=== PATIENT | male | born 1995 | race Caucasian/White ===

== ENCOUNTER 2020-05-04 16:50 | Inpatient (IN) | payer OTHER ==
[~2020-05-04] VITALS: Ht 177.8 cm; Wt 92.9 kg
[2020-05-04] MEDS ORDERED: LASI40TA9 PO (17:03)
[2020-05-04] MEDS ORDERED: LIPI20TA PO (17:03)
[2020-05-04] MEDS ORDERED: SM M250T PO (17:03)
[2020-05-04 18:22] LABS: BASO # 0.1 10^3/uL (0.0-0.2); EOS # 0.4 10^3/uL (0.0-0.5); EOS % 4.9 % (0.0-3.0); HEMATOCRIT 49.5 % (42.0-52.0); HEMOGLOBIN 17.2 g/dl (13.5-17.5); LYMPH # 2.3 10^3/uL (1.5-5.0); LYMPH % 25.8 % (24.0-44.0); MEAN CORPUSCULAR HEMOGLOBIN 31.7 pg (27.0-33.0); MEAN CORPUSCULAR HGB CONC 34.7 g/dl (32.0-36.5); MEAN CORPUSCULAR VOLUME 91.3 fl (80.0-96.0); MONO # 0.8 10^3/uL (0.0-0.8); MONO % 8.7 % (2.0-8.0); NEUTROPHILS # 5.4 10^3/uL (1.5-8.5); NEUTROPHILS % 59.4 % (36.0-66.0); PLATELET COUNT, AUTOMATED 250 10^3/uL (150-450); RED BLOOD COUNT 5.42 10^6/uL (4.30-6.10)
[2020-05-04] MEDS ORDERED: MAGN1CAP PO (18:29)
--- NOTE | 2020-05-04 18:46 | REPVR ---
PROCEDURE INFORMATION: Exam: US Duplex Lower Extremity Veins, Bilateral Exam date and time: 05/04/2020 6:07 PM Age: 24 years old Clinical indication: Edema, localized; Lower extremity, bilateral; Additional info: Edema R/O dvt TECHNIQUE: Imaging protocol: Real-time duplex ultrasound of the extremities with 2-D macias scale, color Doppler flow and spectral waveform analysis with image documentation. Complete exam focused on the bilateral lower extremity veins. COMPARISON: No relevant prior studies available. FINDINGS: Right deep veins: Unremarkable. The common femoral, femoral and popliteal veins are patent without thrombus. Normal Doppler waveforms. Normal compressibility and/or augmentation response. Right superficial veins: No definite abnormality visible. Left deep veins: Unremarkable. The common femoral, femoral and popliteal veins are patent without thrombus. Normal Doppler waveforms. Normal compressibility and/or augmentation response. Left superficial veins: No definite abnormality visible. Soft tissues: Unremarkable. IMPRESSION: No evidence of deep vein thrombosis in the lower extremity vessels bilaterally. Electronically signed by: James Matthew On 05/04/2020 18:45:39 PM
[2020-05-04 18:50] LABS: ALBUMIN 0.8 GM/DL (3.2-5.2); ALT/SGPT 23 U/L (12-78); BILIRUBIN,DIRECT < 0.1 MG/DL (0.0-0.2); BILIRUBIN,TOTAL 0.3 MG/DL (0.2-1.0); BLOOD UREA NITROGEN 20 MG/DL (7-18); CALCIUM LEVEL 7.7 MG/DL (8.5-10.1); CARBON DIOXIDE LEVEL 34 MEQ/L (21-32); CHLORIDE LEVEL 100 MEQ/L (98-107); GLOMERULAR FILTRATION RATE > 60.0 (>60); GLUCOSE, FASTING 74 MG/DL (70-100); LIPASE 84 U/L (73-393); POTASSIUM SERUM 4.1 MEQ/L (3.5-5.1); SODIUM LEVEL 136 MEQ/L (136-145); TOTAL PROTEIN 3.7 GM/DL (6.4-8.2)
[2020-05-04 19:05] LABS: RSV AMPLIFICATION NEGATIVE (NEGATIVE)
[2020-05-04] MEDS ORDERED: ISOVUE-370 76% 100ML VIAL As Ordered ONE (19:13)
--- OUTSIDE RECORDS SUMMARY | 2020-05-04 19:51 | CCD ---
Author Author [facility] Organization [facility] Address Unknown Phone Unavailable Care Team Providers Care Psychologist Military Personnel Name Role Phone TURRIN, CROW Unavailable Unavailable TURRIN, CROW Unavailable Unavailable TURRIN, CROW Unavailable Unavailable TURRIN, CROW Unavailable Unavailable UNKNOWN, [facility] Unavailable Unavailable Re-disclosure Warning The records that you are about to access may contain information from federally-assisted alcohol or drug abuse programs. If such information is present, then the following federally mandated warning applies: This information has been disclosed to you from records protected by federal confidentiality rules (42 CFR part 2). The federal rules prohibit you from making any further disclosure of this information unless further disclosure is expressly permitted by the written consent of the person to whom it pertains or as otherwise permitted by 42 CFR part 2. A general authorization for the release of medical or other information is NOT sufficient for this purpose. The Federal rules restrict any use of the information to criminally investigate or prosecute any alcohol or drug abuse patient.The records that you are about to access may contain highly sensitive health information, the redisclosure of which is protected by Article 27-F of the [facility] Public Health law. If you continue you may have access to information: Regarding HIV / AIDS; Provided by facilities licensed or operated by the [facility] Office of Mental Health; or Provided by the [facility] Office for People With Developmental Disabilities. If such information is present, then the following [facility] mandated warning applies: This information has been disclosed to you from confidential records which are protected by state law. State law prohibits you from making any further disclosure of this information without the specific written consent of the person to whom it pertains, or as otherwise permitted by law. Any unauthorized further disclosure in violation of state law may result in a fine or alf sentence or both. A general authorization for the release of medical or other information is NOT sufficient authorization for further disc losure. Encounters Encounter Providers Location Date Indications Data Source(s ) Emergency Attender: CROW ANDERSONConsultant: PHIL OSBORNE 05/02/2020 02:14:00 PM EST - 05/02/2020 06:01:[address] [facility] Patient discharged. Insurance Providers Payer name Policy type / Coverage type Policy ID Covered republican ID Covered republican's relationship to isbell Policy Isbell Plan Information [employer] [id number] SP [id number] ACTIVE DUTY [id number] SP [id number] [employer] HUMA[employer] - O/P [id number] 18 [id number] Results ID Date Data Source [id number] 05/03/2020 09:41:00 [place] [address] PHONE: [phone] FAX: [phone] Name .................. : RHYS CHILDRESS Walter Acct Number.................. : [id number] ROOM. ................. : TR-02 Number ................... : [id number] Stay type ............. : E/R Discharge Date......... ... : Admit Date ......... : 04/23 Admit Phys .................... : JUSTIN WILLETT Date of ....... : 1995 Family Phys ................... : UNKNOWN CO Phone .................. : [phone] Age ................................ : 24 Film# .................. .:[id number] Sex ................................. : M Unsigned transcriptions are preliminary reports and do not represent a medical or legal document CHEST 2 VIEWS 55644 COMPLETE:05/02/20 15:02 FLO 4013 Reason(s): Chest Pain CHEST X-RAY: 2-VIEWS COMPARISON: None. FINDINGS: The cardiac and mediastinal silhouettes appear normal and the lungs are clear. The bones and soft tissues are normal. The upper abdomen is unremarkable. IMPRESSION: No acute disease identifiable. Electronically Reviewed and Signed By Kendall Lopes MD , 05/03/20 09:41, KGBrian Transcribe Initials: Kavya HERNÁNDEZ scribe Date: 05/02/20 16:07, Dictation Date: Copy for: EMERGENCY DEPT via modem Copy for: 710 MED REC DISCHARGED Page 1 of 1 Name Value Range Interpretation Code Description Data Citlaly rce(s) Supporting Document(s) ID Date Data Source [id number] 05/03/2020 09:33:00 [place] [address] PHONE: [phone] FAX: [phone] Name .................. : RHYS Watson Acct Number.................. : [id number] ROOM. ................. : TR-02 MR Number ................... : [id number] Stay type ............. : E/R Discharge Date......... ... : 05/02/20 Admit Date ....... .. : 05/02/20 Admit Phys .................... : JUSTIN WILLETT Date of ....... : 1995 Family Phys ................... : UNKNOWN CO Phone .................. : [phone] Age ................................ : 24 Film# .................. .:[id number] Sex ................................. : M Unsigned transcriptions are preliminary reports and do not represent a medical or legal document CT CTA CHEST NON-CORONARY [facility] 08518 COMPLETE:05/02/20 18:25 [facility] 4021 Reason(s): CP, SOB, High d-dimer CTA OF THE CHEST WITH CONTRAST: CLINICAL HISTORY: Chest pain, shortness of breath, high D-dimer. TECHNIQUE: CTA examination of the chest was acquired. Axial, coronal and sagittal images are evaluated. FINDINGS: No filling defects identified involving the pulmonary arteries. No aneurysmal dilatation to the aorta. No aortic dissection. No cardiac enlargement or pericardial effusion. No reactive mediastinal or hilar adenopathy. No infiltrates or pleural effusion. No suspicious pulmonary nodules. The osseous structures are unremarkable. Axial images through the upper abdomen reveals mi ld to moderate ascites. IMPRESSION: No pulmonary embolus. No adenopathy, infiltrate or effusion. Ascites identified in the upper abdomen. While performing the above CT examination, radiation dose reduction was accomplished utilizing automated exposure control, adjusting of the mA and kV based on the patient's body size and/or the use of imperative reconstructive techniques. CT dose: 437.9 mGycm Page 1 of 2 [facility] [address] [place] [address] PHONE: [phone] FAX: [phone] Name .................. : RHYS Watson Acct Number.................. : [id number] ROOM. ................. : TR-02 MR Number ................... : [id number] Stay type ............. : E/R Discharge Date......... ... : 05/02/20 Admit Date ......... : 05/02/20 Admit Phys .................... : JUSTIN WILLETT Date of ..... .. : 1995 Family Phys ................... : UNKNOWN CO Phone .................. : [phone] Age ................................ : 24 Film# .................. .:[id number] Sex ................................. : M Unsigned transcriptions are preliminary reports and do not represent a medical or legal document CT CTA CHEST NON-CORONARY [facility] 36570 COMPLETE:05/02/20 18:25 [facility] 4021 Reason(s): CP, SOB, High d-dimer Contrast agent in mL: 75 Isovue 370 Method of administration: Intravenous Electronically Reviewed and Signed By Manish Petit MD , 05/03/20 09:33, SERGIO Transcribe Initials: EDGAR , Transcribe Date: 05/02/20 22:38, Dictation Date: Copy for: EMERGENCY DEPT via [facility] Copy for: 710 MED REC DISCHARGED Page 2 of 2 Name Value Range Interpretation Code Description Data Citlaly rce(s) Supporting Document(s) ID Date Data Source [id number] 05/03/2020 09:19:00 AM EST [facility] [address] [place] [address] PHONE: [phone] FAX: [phone] Name .................. : RHYS CHILDRESS Walter Acct Number.................. : [id number] ROOM. ................. : TR-02 MR Number ................... : [id number] Stay type ............. : E/R Discharge Date......... ... : 05/02/20 Admit Date ....... .. : 05/02/20 Admit Phys .................... : JUSTIN WILLETT Date of ....... : 1995 Family Phys ................... : UNKNOWN CO Phone .................. : [phone] Age ................................ : 24 Film# .................. .:[id number] Sex ................................. : M Unsigned transcriptions are preliminary reports and do not represent a medical or legal document CT ABD & PEL[place] W/[place] [address] COMPLETE:05/02/20 17:15 FLO 4030 Reason(s): Proteinuria, hy poalbuminemia, hematuria CT OF THE ABDOMEN AND PELVIS WITHOUT CONTRAST: CLINICAL HISTORY: Proteinuria, hypoalbuminemia, hematuria. FINDINGS: There is gross ascites. The spleen is enlarged, measuring 13.7 cm. The liver is unremarkable. The pancreas is not well seen because of ascites. The kidneys demonstrate no evidence for masses or obstruction. No lymphadenopathy is seen. There is a right pars defect at L5. IMPRESSION: Gross ascites. Splenomegaly. Right pars defect at L5. While performing the above CT examination, radiation dose reduction was accomplished utilizing automated exposure control, adjusting of the mA and kV based on the patient's body size and/or the use of imperative reconstructive techniques. CT dose: 852.7 mGycm Electronically Reviewed and Signed By Goran Cote MD , 05/03/20 09:19, MRA Transcribe Initials: EDGAR , Transcribe Date: 05/02/20 21:49, Dictation Date: Page 1 of 2 [place] [address] PHONE: [phone] FAX: [phone] Name .................. : RHYS FIOR R Acct Number.................. : [id number] ROOM. ................. : TR-02 MR Number ................... : [id number] Stay type ............. : E/R Discharge Date......... ... : 05/02/20 Admit Date ......... : 05/02/20 Admit Phys .................... : JUSTIN WILLETT Date of ....... : 1995 Family Phys ................... : UNKNOWN CO Phone .................. : [phone] Age ................................ : 24 Film# .................. .:[id number] Sex ................................. : M Unsigned transcriptions are preliminary reports and do not represent a medical or legal document CT ABD & PEL[place] [address] COMPLETE:05/02/20 17:15 FLO 4030 Reason(s): Proteinuria, hypoalbuminemia, hematuria Copy for: EMERGENCY DEPT via mode Copy for: 710 MED REC DISCHARGED Page 2 of 2 Name Value Range Interpretation Code Description Data Citlaly rce(s) Supporting Document(s) ID Date Data Source [id number] 05/03/2020 02:25:00 [place] [address] RESPIRATORY CARE REPORT ==== ---------NAME------- NUMBER SEX AGE ADMIT DISC. XRAY# F/C KELLI Watson [id number] 24 05/02/20 05/02/20 [id number] SB4 E/R DATE OF : 1995 M/R# [id number] PH#: [phone] TR-02 LOCATION: [place] [address] COMPLE TE:05/02/20 15:52 [place] [address] PHYSICIAN: JUSTIN WILLETT Name Value Range Interpretation Code Description Data Citlaly rce(s) Supporting Document(s) ID Date Data Source [id number] 05/02/2020 02:14:[address] [facility] 1 OrderSheet [facility] [address] [place] [address] Phone #: ext- [phone] 05/02/2020 13:52 Patient: FIOR JOINER Sex: M : 1995 Age: 24yWEIGHT:78.4 kg (S)ALLERGIES: No Known Drug AllergyCHIEF COMPLAINT: chest pain, discomfortLAB ORDERSOrder Description Priority Entered Acknowledged InitialedCBC w Diff STAT 14:20 05/02/2020 14:33 Justin Banks Riccardo Jessica R.N. M.D.;CMP STAT 14:20 05/02/2020 14:33 Justin Banks Riccardo Jessica R.N. M.D.;Lipase STAT 14:20 05/02/2020 14:33 Justin Banks Riccardo Jessica R.N. M.D.;PT/PTT STAT 14:20 05/02/2020 14:33 Justin Banks Riccardo Jessica R.N. M.D.;Troponin-T STAT 14:20 04/23 14:33 Justin Banks Riccardo Jessica R.N. M.D.;BNP STAT 14:20 05/02/2020 14:33 Justin Banks Riccardo Jessica R.N. M.D.;D-Dimer STAT 14:20 05/02/2020 14:33 Justin Banks Riccardo Jessica R.N. M.D.;Urinalysis (Clean STAT 15:55 05/02/2020 16:06 Wade Banks Riccardo Jessica R.N. M.D.;TSH STAT 17:36 05/02/2020 17:37 Justin Armendariz Riccardo Lisa RN M.D.;HbA1C STAT 17:36 05/02/2020 17:37 KalaJustin santiago Riccardo Lisa RN M.D.;DIAGNOSTIC STUDY ORDERSOrder Description Priority Entered Acknowledged Initialed 2 OrderSheet [facility] [address] [place] [address] Phone #: ext- [phone] 05/02/2020 13:52 Patient: FIOR JOINER Sex: M : 1995 Age: 24yChest 2 View STAT 14:20 05/02/2020 14:24 Jocelyn,(Oxygen?(No)) Crow Anderson.N. M.D.; Reason for Study: Chest Pain, Shortness of BreathCT CTA CHEST STAT 15:49 05/02/2020 16:07 Jocelyn,(NONCOR) W CON Crow Anderson R.N.INC PP M.D.;(Oxygen?(No))(IV?(Yes)) Reason for Study: CP, SOB, High d-dimerCT ABD PEL W/O STAT 16:50 05/02/2020 17:04 Jocelyn,Oral W/O IV Crow Andersonssica R.N.Contrast M.D.;(Oxygen?(No))(IV?(Yes)) Reason for Study: Proteinuria, hypoalbuminemia, hematuriaMEDICATION/IV/DRIP/FLUID ORDERSOrder Description Priority Entered Acknowledged InitialedAtivan PO 1 mg 14:20 05/02/2020 14:35 Jocelyn, Crow Andersonica R.N. M.D.;GENERAL ORDERSOrder Description Priority Entered Acknowledged InitialedBlood Pressure 14:20 05/02/2020 14:24 Jocelyn,Monitor Crow Anderson R.N. M.D.;Founder And President 14:20 05/02/2020 14:24 Jocelyn,(continuous) Crow Anderson R.N. M.D.;EKG 14:20 05/02/2020 14:58 Justin Banks Riccardo Jessica R.N. M.D.;NPO 14:20 05/02/2020 14:24 Justin Banks Riccardo Jessica R.N. M.D.;Obtain Old EKG 14:20 05/02/2020 14:33 Justin Banks Riccardo Jessica R.N. M.D.;Obtain Old Records 14:20 05/02/2020 14:33 Justin Banks Riccardo Jessica R.N. M.D.; 3 OrderSheet [facility] [address] [place] [address] Phone #: ext- [phone] 05/02/2020 13:52 Patient: FIOR JOINER Sex: M : 1995 Age: 24yOxygen titrate to 14:20 05/02/2020 14:24 Jocelyn,92% Crow Anderson R.N., M.D.;Pulse oximeter 14:20 05/02/2020 14:24 Jocelyn,(Continuous) Crow Anderson R.N., M.D.;Vitals 14:20 05/02/2020 14:24 Justin Banks Riccardo Jessica R.N. M.D.;Saline Lock 15:49 05/02/2020 15:57 Justin Banks Riccardo Jessica R.N. M.D.;[Electronically signed by Yolanda Banks R.N. (18:01 05/02/2020)][Electronically signed by Crow Anderson M.D. (21:04 05/02/2020)][Electronically locked by Yolanda Banks R.N. (18:01 05/02/2020)] Name Value Range Interpretation Code Description Data Citlaly rce(s) Supporting Document(s) ID Date Data Source [id number] 05/02/2020 02:14:00 PM [place] [address] Medication Reconciliation Report [facility] [address] [place] [address] Phone #: ext [phone] 05/02/2020 13:52 Patient: IFOR JOINER Sex: M : 1995 Age: 24yWeight: 78.4 kgHeight/Length: 71 in.BMI: 24.1ALLERGIES: No Known Drug AllergyThe patient's Home Medications are listed below:NONE.The source(s) of the original Home Medication information:Not obtained.The following Medications were given to the patient in the Emergency Department:Ativan [PO] PO 2 mg, administered: 14:35 05/02/2020The following Medications were prescribed to the patient:None. Name Value Range Interpretation Code Description Data [facility](s) Supporting Document(s) ID Date Data Source [id number] 05/02/2020 02:14:00 PM [place] [address] Medication Administration Record [facility] [address] [place] [address] Phone #: ext [phone] 05/02/2020 13:52 Patient: FIOR JOINER Sex: M : 1995 Age: 24yWeight: 78.4 kgHeight/Length: 71 inBMI: 24.1ALLERGIES: No Known Drug Allergy Date/Time Medication Administered Medication OrderedGiven ATIVAN [PO] (LORAZEPAM) Ativan PO 1 mg14:35 05/02/2020 Dose: 2 mg Tablets Yolanda Solares R.N. Name Value Range Interpretation Code Description Data Citlaly rce(s) Supporting Document(s) ID Date Data Source [id number] 05/02/2020 02:14:00 PM EST [facility] 1 General Instructions [facility] [address] [place] [address] Phone #: ext- [phone] 05/02/2020 13:52 Patient: FIOR JOINER Sex: M : 1995 Age: 24yHypoalbuminemiaProteinuriaAscitesSplenomegalyRule out Nephrotic Syndrome.INSTRUCTIONSNo strenuous activity until released. Return to work when released by doctor.Avoid stimulants (such as cigarettes, coffee, cold medicines, sinus medicines, street drugs). Follow a lowsalt diet and low cholesterol diet. Do not smoke. No alcohol.(YOU MUST GO TO CLINIC ON POST TOMORROW FOR NEPHROLOGY REFERRAL DUSTIN CLAUDIORE OUT WHY YOU HAVE LOW PROTEINS, LOW ALBUMIN, PROTEIN IN YOUR URINE, FLUID INYOUR ABDOMEN, LARGE SPLEEN;YOU MAYBE DEVELOPING EARLY NEPHROTIC SYNDROME WHICH IS A DISEASE OF THEKIDNEYS).Warnings: Further evaluation is necessary in order to recheck abnormal lab, conduct further tests andassess the possibility of serious illness (Nephrology). It is very important to follow up with a healthcareprovider.GENERAL WARNINGS: Return or contact your physician immediately if your condition worsens orchanges unexpectedly, if not improving as expected, or if other problems arise. SPECIFICALLY, return ifyou develop chest, neck, jaw, shoulder, arm, or back pain, difficulty breathing, a fluttering sensation in yourchest, lightheadedness, fainting, excessive fatigue, or sudden sweating.Your Current Medications: .No home medication.Follow-up:Return to the emergency department as needed. Follow up with your healthcare provider tomorrow evenif well. Call for an appointment. Reason for referral: evaluation, treatment and Nephrology Consult.Summary of care provided to patient via paper. Follow up with a political researcher in two days even if well. Callfor an appointment. Reason for referral: evaluation and treatment. Summary of care provided to patient viapaper.Understanding of the discharge instructions verbalized by patient. Expected course of illness, dischargeinstructions, activity level, diet, follow- up appointment and risks and benefits of treatment reviewed withpatient and unde rstanding verbalized. Agrees to plan of care. 2 General Instructions [facility] [address] [place] [address] Phone #: ext- [phone] 05/02/2020 13:52 Patient: FIOR JOINER Sex: M : 1995 Age: 24yNo strenuous activity until released. Return to work when released by doctor.(Electronically signed by Crow Anderson M.D. 05/02/2020 21:04) Name Value Range Interpretation Code Description Data Citlaly rce(s) Supporting Document(s) ID Date Data Source [id number] 05/02/2020 02:14:00 PM EST [facility] 1 Clinical Report - Nurses [facility] [address] [place] [address] Phone #: ext- [phone] 05/02/2020 13:52 Patient: FIOR JOINER Sex: M : 1995 Age: 24yTRIAGEArrived by private vehicle. Historian: patient.Acuity: LEVEL 3.Chief Complaint: CHEST DISCOMFORT and SHORTNESS OF BREATH (leg swelling).Alert. No acute distress.( PT says Thursday he began having swelling in his legs. He went to the [facility] clinic yesterday and had xrays, but he is unsure of the results. They also did an EKG for some pressure in his chest that he believeswas normal. Today, he began having lower sternal chest pain while walking up stairs and SOB. He tried torest after this and the symptoms improved slightly. He also says he takes preworkout, caffeine, and energydrinks regularly, but he has not had any in 3 days.).Treatment FOOD AND BEVERAGE MANAGER:None.SEPSIS SCREEN: SIRS SCREEN NEGATIVE. SEPSIS SCREEN NEGATIVE. No suspected or confirmedsigns of infection present.SHAHRIAR COMA SCORE: 15- eyes open- spontaneous (4); best verbal response- oriented (5); bestmotor response- obeys commands (6). --14:04 05/02/20 Katelynn Riddle R.N.13:55 05/02/20. BP: 132/85. MAP: 100. HR: 80. RR: 18. O2 saturation: 97%. Temp: 98.2 F. Pain levelnow: 07/30. --14:04 05/02/20 Katelynn Riddle R.N.Weight: 78.4 kg stated. Height/Length: 71 inches Per Patient. BMI: 24.1. --14:03 05/02/20 Katelynn Riddle R.N.MedicationsNone. --14:00 05/02/20 Katelynn Riddle R.N.AllergiesNo Known Drug Allergy. --14:00 05/02/20 Katelynn Riddle R.N.PROBLEMS:no known problems.ADDITIONAL SURGERIES:Tubes in ears. --14:01 05/02/20 Katelynn Riddle R.N. 2 Clinical Report - Nurses [facility] [address] [place] [address] Phone #: ext- [phone] 05/02/2020 13:52 Patient: FIOR JOINER [facility]#: [id number] Sex: M : 1995 Age: 24y History PAST MEDICAL HX: Immunizations: up-to-date. SOCIAL HX: Never smoker. No alcohol use or drug use. The patient was offered HIV testing but declined and hepatitis C testing but declined. The patient has not traveled outside the [place] Infectious disease exposure: The patient was not exposed to C-diff, MRSA, VRE, CRE or Coronavirus. SELF HARM ASSESSMENT: Self harm assessment was performed. The patient answered "no" to the question(s) "Have you recently felt down, depressed, or hopeless?", "Do you have thoughts of harming or killing yourself?", "Do you have a plan for harming or killing yourself?", "Have you recently had thoughts about harming or killing others?", "Do you have any dangerous items in your possession?", "Have you noticed less interest or pleasure in doing things?", "Are you here because you tried to hurt yourself?" and "Have you ever tried to hurt yourself before today?". ABUSE ASSESSMENT: No report of abuse. NUTRITIONAL RISK ASSESSMENT: The nutritional risk assessment revealed no deficiencies. FUNCTIONAL ASSESSMENT: Functional assessment: no impairments noted. LEARNING NEEDS ASSESSMENT: The learning needs assessment revealed no barriers. FALL RISK ASSESSMENT: Fall risk assessment completed. No risk factors identified. SKIN INTEGRITY ASSESSMENT: Skin integrity risk assessment completed. No skin integrity risk identified. --14:04 05/02/20 Katelynn Riddle R.N. Interventions Identification band on patient. To treatment room. --14:04 05/02/20 Katelynn Riddle R.N.PHYSICAL ASSESSMENTAmbulatory to room. Patient gowned.GENERAL / NEURO / PSYCH: Alert. Oriented X 4. Appears in no acute distress.HEENT: Mucous membranes are pink.RESPIRATORY: Respirations not labored. Chest nontender. Breath sounds within normal limits.CVS: Normal sinus rhythm noted. Pulses within normal limits. ( intermittent mid sternal chest pain withexertion). Capillary refill less than 2 seconds.GI / : Abdomen soft and nontender.EXTREMITIES: No lower extremity edema.SKIN: Skin is warm and dry. Normal skin turgor. Skin is non-tender. --14:08 05/02/20 Yolanda Banks R.N.NURSING PROGRESS NOTESMonitoring of patient in place. EKG time: (13:56 05/02/2020). EKG was performed by a tech and shownto the ED physician. Patient gowned. Reassurance given. Two patient identifiers checked. Call light 3 Clinical Report - Nurses [facility] [address] [place] [address] Phone #: ext- [phone] 05/02/2020 13:52 Patient: FIOR JOINER Sex: M : 1995 Age: 24y placed in reach. Bed placed in lowest position. --14:05 05/02/20 Katelynn Riddle R.N. 14:07 05/02/2020 Site #1 started via IV in the left antecubital space with an 20g angiocath, with good blood return; one attempt. Saline lock flushed with 10 mL saline. --14:07 05/02/20 Yolanda Banks R.N. Patient transported to radiology by wheelchair with medical transcription radiology. --14:24 05/02/20 Yolanda Banks R.N. 14:34 05/02/20. Patient returned from radiology by wheelchair with medical transcription radiology. --14:36 05/02/20 Yolanda Banks R.N. 14:35 05/02/2020 Ativan (LORazepam) PO Tablets 2 mg given. Allergies verified and confirmed 5 rights. Information reviewed with patient. --14:35 05/02/20 Yolanda Banks R.N. 15:03 05/02/20. BP: 111/50. MAP: 70. HR: 75. RR: 21. O2 saturation: 99%. --15:04 05/02/20 [place] circle shear operator, [facility] Tech1 16:00 05/02/20. BP: 117/59. MAP: 78. HR: 79. RR: 18. O2 saturation: 99%. --16:00 05/02/20 [place] circle shear operator, [facility] Tech1 Patient transported to [place] by wheelchair with medical transcription radiology. --16:04 05/02/20 Yolanda Banks R.N. 17:04 05/02/20. BP: 111/58. MAP: 75. HR: 81. RR: 20. O2 saturation: 99%. --17:05 05/02/20 [facility], [facility] Tech 18:00 05/02/2020 Site #1 removed upon discharge. Bandaid applied. --18:00 05/02/20 Yolanda Banks R.N.DISPOSITION / DISCHARGE 17:42 05/02/20. BP: 118/61. MAP: 80. HR: 70. RR: 18. O2 saturation: 99%. Temp: 98.1 F. Pain level now: 07/30. --17:43 05/02/20 [facility], [place] [address] No learning barriers present. Discharge instructions provided and reviewed with the patient. Reviewed referral to a political researcher for followup. Reviewed need for increased fluid intake. Activity restrictions (rest) reviewed. Work note given. Patient verbalized understanding. Written instructions provided in Chadian. --18:01 05/02/20 Yolanda Banks R.N. Departure time: 18:01 05/02/2020. --18:01 05/02/20 Yolanda Banks R.N.Locked/Released at 05/02/2020 18:01 by Yolanda Banks R.N. 4 Clinical Report - Nurses [facility] [address] [place] [address] Phone #: ext- [phone] 05/02/2020 13:52 Patient: FIOR JOINER Sex: M : 1995 Age: 24y Name Value Range Interpretation Code Description Data Citlaly rce(s) Supporting Document(s) ID Date Data Source [id number] 0001 05/02/2020 02:14:00 PM EST [facility] 1 Clinical Report - Physicians/Mid Levels [facility] [address] [place] [address] Phone #: ext- [phone] 05/02/2020 13:52 Patient: FIOR JOINER Sex: M : 1995 Age: 24y Time Seen: 14:00 05/02/2020; initial patient contact. Arrived- By private vehicle. Historian- patient. Disposition decision: 17:41 05/02/2020.HISTORY OF PRESENT ILLNESS Chief Complaint: CHEST PAIN and DISCOMFORT. This started yesterday and is now gone. It was gradual in onset and has been intermittent and waxing/waning. Onset during moderate exertion. It is described as sharp and it is described as located in the central chest area. No radiation. At its maximum, severity described as moderate and 5 / 10. When seen in the E.D., it was almost gone and severity described as 1 / 10. Modifying factors- worsened by exertion. Relieved by rest. No nausea, vomiting or diaphoresis. He has had mild difficulty breathing on exertion. 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 Similar symptoms previously. None. Recent medical care: The patient was seen recently in a i marilynn. ( yesterday as above).REVIEW OF SYSTEMSNo fever, chills, cough, calf pain or fainting episodes. No headache, sore throat, blurred vision, abdominalpain or black stools. No difficulty with urination, skin rash, enlarged lymph nodes, joint pain or bloodystools. The patient has had mild pedal edema involving the right and left lower extremity (5 days ago -gone). All other systems reviewed and are negative.PAST HISTORYSee nurses notes. Problems: no known problems. Additional Surgeries: Tubes in ears. Medications: None. Allergies: No Known Drug Allergy.SOCIAL HISTORYNever smoker. No alcohol use or drug use. No recent travel. 2 Clinical Report - Physicians/Mid Levels [facility] [address] [place] [address] Phone #: ext- [phone] 05/02/2020 13:52 [id number] Sex: [facility] : 1995 Age: 24yADDITIONAL NOTESThe nursing notes have been reviewed with agreement regarding the chief complaint, HPI, ROS, PMH andpatient medications and allergies.PHYSICAL EXAMVital Signs: 05/02/2020 13:55 BP: 132/85. MAP: 100. HR: 80. RR: 18. O2 saturation: 97%. Temp: 98.2 F.Pain level now: 5/10. Have been reviewed. Oxygen saturation normal.Appearance: Alert. Oriented X3. No acute distress.Eyes: Pupils equal, round and reactive to light. Eyes normal inspection.ENT: Nose normal. Pharynx normal.Neck: Normal inspection. Neck supple.CVS: Normal heart rate and rhythm. Heart sounds normal. Pulses normal.Respiratory: No respiratory distress. Chest pain reproducible with palpation of the sternum. Painlessinspiration. Breath sounds normal.Abdomen: Soft and nontender. Bowel sounds normal. No organomegaly. No mass. Femoral pulsesequal.Back: Normal external inspection.Skin: Skin warm and dry. Normal skin color. No rash. Normal skin turgor.Extremities: Extremities exhibit normal ROM. No lower extremity edema. No calf tenderness. No lowerextremity rico ma.Neuro: Oriented X 3. No motor deficit. No sensory deficit.LABS, X-RAYS, AND EKGEKG: No acute process. No acute ischemia. Normal EKG. Normal sinus rhythm. Rate: 73/min.Normal ST and T waves. Prior EKG unavailable. The study has been interpreted contemporaneously byme. The EKG appears to be a good tracing. Interpretation time: 13:57 05/02/2020.Chest X-ray: No acute disease. Views: PA and lateral. Technique: good. The X-rays were interpretedcontemporaneously by me. Interpretation time: 15:00 05/02/2020.Abdominal CT: see report, gross ascites w splenomegaly. Study type: abdomen and pelvis. AbdominalCT performed without contrast. The study was interpreted by the radiologist. Interpretation time: 17:19005/02/2020.CTA Pulmonary Arteries: No evidence of pulmonary embolism. see report; no adenopathy, no effusion,ascites in upper abdomen? The CTA was performed with contrast. The study was interpreted by theradiologist. Interpretation time: 16:30 05/02/2020.Laboratory Tests: Laboratory tests have been ordered, with results reviewed and considered in themedical decision making process. TSH: (SHAY: 05/02/2020 14:30) ( [facility] Final results Test Result Flag Units (Reference) TSH 8.66 H uIU/mL (0.47 - 5.01) HbA1C: (SHAY: 05/02/2020 14:30) ( MsgRcvd 05/02/2020 18:14) Final results Test Result Flag Units (Reference) HGB A1C 4.8 % (4.4 - 6.1) {A1]{HB] 3 Clinical Report - Physicians/Mid Levels [facility] [address] [place] [address] Phone #: ext- [phone] 05/02/2020 13:52 Patient: FIOR JOINER [facility]#: [id number] Sex: M : 1995 Age: 24yCT ABD PEL W/O Oral W/O IV Contrast: (SHAY: 05/02/2020 16:50) ( MsgRcvd 05/02/2020 17:15) InProgressCT ABDReason(s): Proteinuria, hypoalbuminemia, hematuriaTRANSPORTATION: WC IV? IV?(Yes) O2? Oxygen?(No) RoUrinalysis: (SHAY: 05/02/2020 16:00) ( MsgRcvd 05/02/2020 16:21) Final results Test Result Flag Units (Reference) URINALYSIS URINALYSIS SOURCE R COLOR yellow (NORMAL: Yello CLARITY clear (NORMAL: Clear SPEC GRAVITY 1.015 (1.001 - 1.030 pH 6 (5 - 9) GLUCOSE NORM (NORMAL: Negat BILIRUBIN NEG (NORMAL: Negat KETONE NEG (NORMAL: Negat PROTEIN 500 A (KENJI L: Negat NITRITE NEG (NORMAL: Negat BLOOD 25 A (NORMAL: Negat LEUK EST NEG (NORMAL: Negat UROBILINOGEN NOR (less than 1.0 MICROSCOPIC See Below WBC 1 - 3 (NORMAL: NONECT CTA CHEST NON-CORONARY W CON INC PP: (SHAY: 05/02/2020 15:49) ( MsgRcvd 05/02/2020 18:25) InProgressCT CTA CHEST NON-CORONARY W CON INC PPReason(s): CP, SOB, High d-dimerTRANSPORTATION: WC IV? IV?(Yes) O2? Oxygen?(No) RoCVE: (SHAY: 05/02/2020 14:30) ( MsgRcvd 05/02/2020 16:37) Final results Test Result Flag Units (Reference) CVE PANEL LIPID PANEL CHOLESTEROL 332 H MG/DL (131 - 200) TRIGLYCERIDES 91 MG/DL (35 - 160) LDL 216 H mg/dL (65 - 175) CVE RISK CHOL/HDL LDL/HDLMEN: 1/2 AVERAGE 3.43 1.00AVERAGE 4.97 3.55 2X AVERAGE 9.55 6.25 3X YPPIRYS76.99 7.99WOMEN: 1/2 AVERAGE 3.27 1.47 AVERAGE 4.443.22 2X AVERAGE 7.05 5.03 3X AVERAGE 11.04 6.14CBC w Diff: (SHAY: 05/02/2020 14:30) ( MsgRcvd 05/02/2020 14:59) Final results Test Result Flag Units (Reference) CBC W/AUTOMATED DIFF COMPLETE BLOOD COUNT WBC 7.3 10/uL (4.2 - 11.0) 4 Clinical Report - Physicians/Mid Levels [facility] [address] [place] [address] Phone #: ext- [phone] 05/02/2020 13:52 Patient: FIOR JOINER Sex: M : 1995 Age: 24y RBC 5.58 10/uL (4.50 - 6.30) HEMOGLOBIN 18.4 H g/dL (14.0 - 16.0) HEMATOCRIT 50.2 % (41.0 - 51.0) MCV 90.0 fL (80.0 - 94.0) MCH 33.0 pg (27.0 - 34.0) MCHC 36.7 H g/dL (31.0 - 36.0) RDW 11.9 % (11.5 - 14.8) PLATELETS 280 10/uL (150 - 450) MPV 8.4 fL (7.4 - 10.4) NEUT 60.2 % (37.0 - 80.0) LYMPH 26.8 % (25.0 - 40.0) MONO 6.1 % (3.0 - 8.0) EOS 5.4 % (0.0 - 7.0) BASO 1.4 % (0.0 - 2.0) %IG 0.1 H % (0.0 - 0.0) %NRBC 0.0 % (0.0 - 0.0) #NEUT 4.41 10/uL (2.00 - 6.90) #LYMPH 1.97 10/uL (0.60 - 3.40) #MONO 0.45 10/uL (0.00 - 0.90) #EOS 0.40 10/uL (0.00 - 0.70) #BASO 0.10 10/uL (0.00 - 0.20) #IG 0.01 10/uL (0.00 - 0.10) #NRBC 0.00 10/uL (0.00 - 0.00) MANUAL DIFF NOT INDICATED RBC MORPH NOT INDICATEDCMP: (SHAY: 05/02/2020 14:30) ( MsgRcvd 05/02/2020 15:12) Final results Test Result Flag Units (Reference) COMPREHENSIVE METABOLIC PANEL COMPREHENSIVE METABOLIC PANEL SODIUM 133 L mEq/L (134 - 153) POTASSIUM 4.3 mEq/L (3.6 - 5.0) CHLORIDE 100 mEq/L (98 - 107) CO2 28 MEQ/L (22 - 30) GLUCOSE 113 H MG/DL (70 - 99) BUN 19 MG/DL (7 - 21) CREATININE 0.8 MG/DL (0.7 - 1.5) BUN/CREAT 24 (8 - 27) TOTAL PROTEIN 3.4 L G/DL (6.3 - 8.2) ALBUMIN 1.7 L G/DL (3.9 - 5.0) GLOBULIN 1.7 L GM/DL (2.4 - 3.2) A/G RATIO 1.0 (0.8 - 2.0) CALCIUM 7.7 L MG/DL (8.4 - 10.2) TOTAL BILI <0.7 MG/DL (0.2 - 1.3) ALKALINE PHOS 88 U/L (38 - 126) SGOT/AST 23 U/L (5 - 40) SGPT/ALT 26 U/L (7 - 56) ANION GAP 5.0 L mmol/L (8.0 - 16.0) AGE 24 yrs NON-AA GFR >60 mL/min AFR AMER GFR >60 mL/min Male GFR Interprentation 20-49 yrs >60 mL/min [id number] yrs >56 mL/min Normal 60-69 yrs >49 mL/min Normal 70-79yrs>42 mL/min Normal 80 and above >35 mL/min Normal Female GFRInterpretation 20-39 yrs >60 mL/min Normal 40-49 yrs >58 mL/minNormal 50-59 yrs >51 mL/min Normal 60-69 yrs >45 mL/min Lwtutj70-90 yrs >39 mL/min Normal 80 and above >32 mL/min NormalLipase: (SHAY: 05/02/2020 14:30) ( MsgRcvd 05/02/2020 15:08) Final results 5 Clinical Report - Physicians/Mid Levels [facility] [address] [place] [address] Phone #: ext- [phone] 05/02/2020 13:52 Patient: FIOR JOINER Sex: M : 1995 Age: 24y Test Result Flag Units (Reference) LIPASE 15 U/L (13 - 60)PT/PTT: (SHAY: 05/02/2020 14:30) ( MsgRcvd 05/02/2020 14:58) Final results Test Result Flag Units (Reference) PROTIME 13.1 SECONDS (11.0 - 15.5) INR 0.94 (0.93 - 1.23) PTT 31.7 SECONDS (24.8 - 36.7) \\BLDo\\INR INTERPRETATION\\BLDx\\ Therapeutic range for Coumadin andrelated oral anticoagulants. - International Normalized Ratio (INR): 2.0 - 3.0 for VenousThrombosis, Pulmonary Embolus, Tissue heart valves, Acute LA Atrial Fibrillation, Valvular heart diseaseand recurrent Systemic Embolism. - International Normalized Ratio (INR): 2.5 - 3.5 forMechanical Pros thetic valve.Troponin-T: (SHAY: 05/02/2020 14:30) ( [facility] Final results Test Result Flag Units (Reference) TROPONIN T <0.01 NG/ML (0.00 - 0.10) TROPONIN T0.1 ng/ml Recommended as the clinical threshold value forTroponin T.BNP: (SHAY: 05/02/2020 14:30) ( [facility] 05/02/2020 15:08) Final results Test Result Flag Units (Reference) BNP 9 PG/ML (0 - 125)D-Dimer: (SHAY: 05/02/2020 14:30) ( [facility] 05/02/2020 15:12) Final results Test Result Flag Units (Reference) D-DIMER QUANT 2.13 H ug/mL (0.27 - 0.50)Chest 2 View: (SHAY: 05/02/2020 14:20) ( [facility] 05/02/2020 16:08) In ProgressCHEST 2 VIEWSReason(s): Chest PainTRANSPORTATION: WC IV? O2? Oxygen?(No) Room: ED Exam [place]ST [address] [place] [address] PHONE: [phone] FAX: [phone] Name .................. : RHYS Watson Acct Number..... ............. : [id number] ROOM. ................. : TR MR Number ................... : [id number] Stay type ............. : E/R Discharge Date......... ... : Admit Date ......... : 05/02/20 Admit Phys .................... : JUSTIN TAMIE Date of ....... : 1995 Family Phys ................... : UNKNOWN CO Phone .................. : [phone] Age ................................ : 24 Film# .................. .:[id number] Sex ................................. : M Unsigned transcriptions are preliminary reports and do not represent a medical or legal document CHEST 2 VIEWS [id number] COMPLETE:05/02/20 15:02 FLO 4013 Reason(s): Chest Pain Shortness of Breath 6 Clinical Report - Physicians/Mid Levels [facility] [address] [place] [address] Phone #: [phone]- [phone] 05/02/2020 13:52 Patient: FIOR JOINER Sex: M : 1995 Age: 24y CHEST X-RAY: 2-VIEWS COMPARISON: None. FINDINGS: The cardiac and mediastinal silhouettes appear normal and t he lungs are clear. The bones and soft tissues are normal. The upper abdomen is unremarkable. IMPRESSION: No acute disease identifiable. Electronically Reviewed and Signed By DCTNAME , SIGNDATE, KGG Transcribe Initials: EDGAR , Transcribe Date: 05/02/20 16:07, Dictation Date: <<REPDIST>> Page 1 of 1.PROGRESS AND PROCEDURESCourse of Care: 15:51 05/02/20. workup all in and reviewed, calcium is low but when corrected for lowalbumin, it's nml; pt has low protein, albumin, globulin; d- dimer is high, will do CTA chest to r/o PE; pt madeaware of blood tests; rest of blood work is nml;will get UA and lipid profile to r/o nephrotic type syndrome 16:46 05/02/20. CTA chest shows no PE but some ascites in upper abdomen, pt has no abdominal pain and his liver enzymes are nml; lipid profile in and reviewed, and not too bad; UA shows proteinuria and mild hematuria; will do CTAP w/o since he just had contrast for PE study 17:33 05/02/20. CTAP w/o results show gross ascites and splenomegaly, abdomen soft, no pain, liver profile nml; as discussed above, pt seems to have nephrotic syndrome and needs to see political researcher GONZÁLEZ via referral on Post, for further investigation; pt will go to clinic tomorrow to get this referral; pt understands these important d/c instructions and agrees; TSH and HBA1C tests added 18:37 05/02/20. TSH high, Free T3 and Free T4 ordered, HBA1C nml. Patient counseled in person regarding the patient's stable condition, test results, diagnosis and need for follow-up. Patient agrees with plan of care. Disposition: Condition: good and stable. Discharge decision based on the following: patient's condition is stable; patient's condition is improved; 7 Clinical Report - Physicians/Mid Levels [facility] [address] [place] [address] Phone #: ext- [phone] 05/02/2020 13:52 [id number] Sex: M : 1995 Age: 24y patient is ambulatory; patient is active; patient drinking fluids; patient's pain is controlled; patient's exam is improved; moderately abnormal test results; improving condition on multiple repeat evaluations; social support is good; transportation is available; follow-up is available; clinical impression is consistent with outpatient treatment.CLINICAL IMPRESSION Hypoalbuminemia Proteinuria Ascites Splenomegaly Rule out Nephrotic Syndrome.INSTRUCTIONS No strenuous activity until released. Return to work when released by doctor. Avoid stimulants (such as cigarettes, coffee, cold medicines, sinus medicines, street drugs). Follow a low salt diet and low cholesterol diet. Do not smoke. No alcohol. (YOU MUST GO TO CLINIC ON POST TOMORROW FOR NEPHROLOGY REFERRAL GONZÁLEZ, TO FIGURE OUT WHY YOU HAVE LOW PROTEINS, LOW ALBUMIN, PROTEIN IN YOUR URINE, FLUID IN YOUR ABDOMEN, LARGE SPLEEN; YOU MAYBE DEVELOPING EARLY NEPHROTIC SYNDROME WHICH IS A DISEASE OF THE KIDNEYS). Warnings: Further evaluation is necessary in order to recheck abnormal lab, conduct further tests and assess the possibility of serious illness (Nephrology). It is very important to follow up with a healthcare provider. GENERAL WARNINGS: Return or contact your physician immediately if your condition worsens or changes unexpectedly, if not improving as expected, or if other problems arise. SPECIFICALLY, return if you develop chest, neck, jaw, shoulder, arm, or back pain, difficulty breathing, a fluttering sensation in your chest, lightheadedness, fainting, excessive fatigue, or sudden sweating. Your Current Medications: . No home medication. Follow-up: Return to the emergency department as needed. Follow up with your healthcare provider tomorrow even if well. Call for an appointment. Reason for referral: evaluation, treatment and Nephrology Consult. Summary of care provided to patient via paper. Follow up with a political researcher in two days even if well. Call for an appointment. Reason for referral: evaluation and treatment. Summary of care provided to patient via paper. 8 Clinical Report - Physicians/Mid Levels [facility] [address] [place] [address] Phone #: ext- [phone] 05/02/2020 13:52 Patient: FIOR JOINER [facility] [id number] Sex: M : 1995 Age: 24y Understanding of the discharge instructions verbalized by patient. Expected course of illness, discharge instructions, activity level, diet, follow-up appo intment and risks and benefits of treatment reviewed with patient and understanding verbalized. Agrees to plan of care.(Electronically signed by Crow Anderson M.D. 05/02/2020 21:04) Name Value Range Interpretation Code Description Data Citlaly rce(s) Supporting Document(s) ID Date Data Source [id number] 05/02/2020 04:21:00 PM EST [facility] Name Value Range Interpretation Code Description Data Citlaly rce(s) Supporting Document(s) [facility] COL[facility] yellow NORMAL: Yellow [facility] CLARITY clear NORMAL: Clear [facility] Specific gravity of Urine by Test strip 1.015 1.001 - 1.030 [facility] pH 6 5 - 9 [facility] al Glucose [Mass/volume] in Urine by Test strip NORM NORMAL: Negat rodrigo [facility] Bilirubin.total [Presence] in Urine by Test strip NEG NORMAL: Negative [facility] Ketones [Presence] in Urine by Test strip NEG NORMAL: Negative [facility] Protein [Mass/volume] in Urine by Test strip 500 NORMAL: Negat rodrigo [facility] Nitrite [Presence] in Urine by Test strip NEG NORMAL: Negative [facility] BLOOD 25 NORMAL: Negative [facility] Leukocyte esterase [Presence] in Urine by Test strip NEG KENJI L: Negative [facility] Urobilinogen [Mass/volume] in Urine by Test strip NOR less divya n 1.0 mg/dL [facility] MICROSCOPIC See Below [facility] ital WBC 1 - 3 NORMAL: NONE [facility] ID Date Data Source [id number] 05/04/2020 09:09:[address] [facility] Name Value Range Interpretation Code Description Data Citlaly rce(s) Supporting Document(s) Triiodothyronine (T3) Free [Mass/volume] in Serum or Plasma 2.0 pg/ mL 2.0-4.4 [facility] ID Date Data Source [id number] 05/02/2020 10:39:[address] [facility] Name Value Range Interpretation Code Description Data Citlaly rce(s) Supporting Document(s) Thyroxine (T4) free index in Serum or Plasma by calculation 0.77 NG/DL 0.93 - 1.70 L [facility] ID Date Data Source [id number] 05/02/2020 06:15:00 PM [facility] Value Range Interpretation Code Description Data Citlaly rce(s) Supporting Document(s) Thyrotropin [Units/volume] in Serum or Plasma by Detec tion limit <= 0.05 mIU/L 8.66 uIU/mL 0.47 - 5.01 H [facility] ID Date Data Source [id number] 05/02/2020 06:14:[address] [facility] Name Value Range Interpretation Code Description Data Citlaly rce(s) Supporting Document(s) Hemoglobin A1c/Hemoglobin.total in Blood 4.8 % 4.4 - 6.1 [facility] {A1]{HB] ID Date Data Source [id number] 05/02/2020 04:37:[address] [facility] Name Value Range Interpretation Code Description Data Citlaly rce(s) Supporting Document(s) CVE PANEL [facility] LIPID PANEL Cholesterol [Mass/volume] in Serum or Plasma 332 MG/DL 131 - 200 H [facility] Deprecated Triglyceride [Mass/volume] in Serum or Plasma 91 MG/DL 3 5 - 160 [facility] Cholesterol in LDL [Mass/volume] in Serum or Plasma by Direc t assay 216 mg/dL 65 - 175 H [facility] CVE RISK CHOL/HDL LDL/HDLMEN: 1/2 AVERAGE 3.43 1.00 AVERAGE 4.97 3.55 2X AVERAGE 9.55 6.25 3X AVERAGE 23.99 7.99WOMEN: 1/2 AVERAGE 3.27 1.47 AVERAGE 4.44 3.22 2X AVERAGE 7.05 5.03 3X AVERAGE 11.04 6.14 ID Date Data Source [id number] 05/02/2020 03:12:00 PM EST [facility] Name Value Range Interpretation Code Description Data Citlaly rce(s) Supporting Document(s) COMPREHENSIVE METABOLIC PANEL [facility] COMPREHENSIVE METABOLIC PANEL Sodium [Moles/volume] in Serum or Plasma 133 mEq/L 134 - 153 L [facility] Potassium [Moles/volume] in Serum or Plasma 4.3 mEq/L 3.6 - 5.0 [facility] Chloride [Moles/volume] in Serum or Plasma 100 mEq/L 98 - 107 [facility] Carbon dioxide, total [Moles/volume] in Serum or Plasma 28 MEQ/L 22 - 30 [facility] Glucose [Mass/volume] in Serum or Plasma 113 MG/DL 70 - 99 H [facility] BUN 19 MG/DL 7 - 21 [facility] Creatinine [Mass/volume] in Serum or Plasma 0.8 MG/DL 0.7 - 1.5 [facility] BUN/CREAT 24 8 - 27 [facility] al Protein [Mass/volume] in Serum or Plasma 3.4 G/DL 6.3 - 8.2 L [facility] Albumin [Mass/volume] in Serum or Plasma 1.7 G/DL 3.9 - 5.0 L [facility] Globulin [Mass/volume] in Serum by calculation 1.7 GM/DL 2.4 - 3.2 L [facility] A/G RATIO 1.0 0.8 - 2.0 [facility] Calcium [Mass/volume] in Serum or Plasma 7.7 MG/DL 8.4 - 10.2 L [facility] Bilirubin.total [Mass/volume] in Serum or Plasma <0.7 MG/DL 0.2 - 1.3 [facility] Alkaline phosphatase [Enzymatic activity/volume] in Serum or Plasma 88 U/L 38 - 126 [facility] Aspartate aminotransferase [Enzymatic activity/volume] in Serum or Plasma 23 U/L 5 - 40 [facility] Alanine aminotransferase [Enzymatic activity/volume] in Seru m or Plasma 26 U/L 7 - 56 [facility] Anion gap 3 in Serum or Plasma 5.0 mmol/L 8.0 - 16.0 L [facility]GE 24 [facility] >60 mL/min [facility] AFR AMER GFR >60 mL/min [facility] Male GFR In terprentation 20-49 yrs >60 mL/min Normal 50-59 yrs >56 mL/min Normal 60-69 yrs >49 mL/min Normal 70-79yrs >42 mL/min Normal 80 and above >35 mL/min Normal Female GFR Interpretation 20-39 yrs >60 mL/min Normal 40-49 yrs >58 mL/min Normal 50-59 yrs >51 mL/min Normal 60-69 yrs >45 mL/min Normal 70-79 yrs >39 mL/min Normal 80 and above >32 mL/min Normal ID Date Data Source [id number] 05/02/2020 03:11:00 PM [facility] Value Range Interpretation Code Description Data Citlaly rce(s) Supporting Document(s) Fibrin D-dimer FEU [Mass/volume] in Platelet poor plasma 2.13 ug /mL 0.27 - 0.50 H [facility] ID Date Data Source [id number] 05/02/2020 03:08:00 PM [facility] Value Range Interpretation Code Description Data Citlaly rce(s) Supporting Document(s) BNP 9 PG/ML 0 - 125 [facility] al ID Date Data Source [id number] 05/02/2020 03:07:00 PM [facility] Value Range Interpretation Code Description Data Citlaly rce(s) Supporting Document(s) Lipase [Enzymatic activity/volume] in Serum or Plasma 15 U/L 13 - 60 [facility] ID Date Data Source [id number] 05/02/2020 03:05:00 PM [facility] Value Range Interpretation Code Description Data Citlaly rce(s) Supporting Document(s) TROPONIN T <0.01 NG/ML 0.00 - 0.10 [facility]ital TROPONIN T0.1 ng/ml Recommended as the c linical threshold value Zak Skinner. ID Date Data Source [id number] 05/02/2020 02:59:00 PM EST [facility] Name Value Range Interpretation Code Description Data Citlaly rce(s) Supporting Document(s) CBC W/AUTOMATED DIFF [facility] COMPLETE BLOOD COUNT Leukocytes [#/volume] in Blood by Automated count 7.3 10^3/uL 4.2 - 1 1.0 [facility] Erythrocytes [#/volume] in Blood by Automated count 5.58 10^6/uL 4. 50 - 6.30 [facility] Hemoglobin [Mass/volume] in Blood 18.4 g/dL 14.0 - 16.0 H [facility] Hematocrit [Volume Fraction] of Blood by Automated count 50.2 % 4 1.0 - 51.0 [facility] Erythrocyte mean corpuscular volume [Entitic volume] by Auto mated count 90.0 fL 80.0 - 94.0 [facility] Erythrocyte mean corpuscular hemoglobin [Entitic mass] by Automated count 33.0 pg 27.0 - 34.0 [facility] Erythrocyte mean corpuscular hemoglobin concentration [Mass/volume] by Automated count 36.7 g/dL 31.0 - 36.0 H [facility] Erythrocyte distribution width [Ratio] by Automated count 11.9 % 11.5 - 14.8 [facility] Platelets [#/volume] in Blood by Automated count 280 10^3/uL 150 - 45 0 [facility] Platelet mean volume [Entitic volume] in Blood by Automated count 8.4 fL 7.4 - 10.4 [facility] Neutrophils/100 leukocytes in Blood by Automated count 60.2 % 37. 0 - 80.0 [facility] Lymphocytes/100 leukocytes in Blood by Manual count 26.8 % 25.0 - 40.0 [facility] Monocytes/100 leukocytes in Blood by Automated count 6.1 % 3.0 - 8.0 [facility] Eosinophils/100 leukocytes in Blood by Automated count 5.4 % 0.0 - 7.0 [facility] Basophils/100 leukocytes in Blood by Automated count 1.4 % 0.0 - 2.0 [facility] %IG 0.1 % 0.0 - 0.0 [facility] %[facility] 0.0 % 0.0 - 0.0 [facility] al Neutrophils [#/volume] in Blood by Automated count 4.41 10^3/uL 2.00 - 6.90 [facility] Lymphocytes [#/volume] in Blood by Automated count 1.97 10^3/uL 0.60 - 3.40 [facility] Monocytes [#/volume] in Blood by Automated count 0.45 10^3/uL 0.00 - 0.90 [facility] Eosinophils [#/volume] in Blood by Automated count 0.40 10^3/uL 0.00 - 0.70 [facility] Basophils [#/volume] in Blood by Automated count 0.10 10^3/uL 0.00 - 0.20 [facility] #IG 0.01 10^3/uL 0.00 - 0.10 [facility] #NRBC 0.00 10^3/uL 0.00 - 0.00 [facility] MANUAL DIFF NOT INDICATED [facility] RBC MORPH NOT INDICATED [facility] spital ID Date Data Source [id number] 05/02/2020 02:58:00 PM EST [facility] Name Value Range Interpretation Code Description Data Citlaly rce(s) Supporting Document(s) Prothrombin time (PT) 13.1 SECONDS 11.0 - 15.5 [facility] INR in Platelet poor plasma by Coagulation assay 0.94 0.93 - 1. 23 [facility] aPTT in Blood by Coagulation assay 31.7 SECONDS 24.8 - 36.7 [facility] \\BLDo\\INR INTERPRETATION\\BLDx\\ Therapeutic range for Coumadin and related oral anticoagulants. - International Normalized Ratio (INR): 2.0 - 3.0 for Venous Thrombosis, Pulmonary Embolus, Tissue heart valves, Acute LA Atrial Fibrillation, Valvular heart disease and recurrent Systemic Embolism. - International Normalized Ratio (INR): 2.5 - 3.5 for Mechanical Prosthetic valve. Procedure
--- NOTE | 2020-05-04 19:53 | REPVR ---
PROCEDURE INFORMATION: Exam: CT Abdomen And Pelvis With Contrast Exam date and time: 05/04/2020 7:32 PM Age: 24 years old Clinical indication: Abdominal pain; Generalized; Additional info: Gen abd pain, swelling TECHNIQUE: Imaging protocol: Computed tomography of the abdomen and pelvis with contrast. Radiation optimization: All CT scans at this facility use at least one of these dose optimization techniques: automated exposure control; mA and/or kV adjustment per patient size (includes targeted exams where dose is matched to clinical indication); or iterative reconstruction. Contrast material: ISOVUE 370; Contrast volume: 100 ml; Contrast route: INTRAVENOUS (IV); COMPARISON: No relevant prior studies available. FINDINGS: Pleural spaces: Bilateral small pleural effusions are present at the lung bases. Heart: The heart size is normal. No evidence of CHF. Liver: Normal. No mass. Gallbladder and bile ducts: Normal. No calcified stones. No ductal dilation. Pancreas: Normal. No ductal dilation. Spleen: Normal. No splenomegaly. Adrenal glands: Normal. No mass. Kidneys and ureters: Both kidneys appear normal. No hydronephrosis. Stomach and bowel: Unremarkable. No obstruction. No mucosal thickening. Appendix: No evidence of appendicitis. Intraperitoneal space: A moderate volume ascites is present. Vasculature: Unremarkable. No abdominal aortic aneurysm. Lymph nodes: Unremarkable. No enlarged lymph nodes. Urinary bladder: The urinary bladder is filled with urine. Reproductive: Unremarkable as visualized. Bones/joints: Unremarkable. No acute fracture. Soft tissues: Diffuse body wall edema is seen in the abdomen and pelvis and proximal thighs consistent with underlying anasarca. IMPRESSION: 1. Bilateral small pleural effusions are present at the lung bases. 2. The heart size is normal. No evidence of CHF. 3. Diffuse body wall edema is seen in the abdomen and pelvis and proximal thighs consistent with underlying anasarca. 4. A moderate volume ascites is present. 5. Both kidneys appear normal. No hydronephrosis. 6. The urinary bladder is filled with urine. Electronically signed by: James Matthew On 05/04/2020 19:53:42 PM
[2020-05-04] MEDS ORDERED: methylPREDNISolone 1,000 MG, VIAL MATE ADAPTER 1 EACH in D5W 250 ML IV ONE (21:15)
[2020-05-04] MEDS ORDERED: PANTOPRAZOLE 40MG VIAL (C9113 PER 1) IV ONE (21:15)
[2020-05-04 21:41] LABS: MAGNESIUM LEVEL 1.9 MG/DL (1.8-2.4)
[2020-05-04] MEDS ORDERED: HEPARIN SOD (PORCINE) 5000UNITS/ML 1ML VIAL/SYRINGE IV PRN (22:15)
[2020-05-04] MEDS ORDERED: HEPARIN SOD (PORCINE) 5000UNITS/ML 1ML VIAL/SYRINGE IV ONE (22:15)
[2020-05-04] MEDS ORDERED: MAGNESIUM OXIDE 400MG TAB (MAG-OX) PO ONE (22:15)
--- NOTE | 2020-05-04 22:27 | HPEPDOC ---
General Date of Admission 05/04/2020 Date of Service: May 04, 2020 Chief Complaint The patient is a 24-year-old male admitted with a reason for visit of ADMIT. Source: Patient Exam Limitations: No limitations Timing/Duration: Week(s) (1) Severity: Moderate, Severe Associated Symptoms: Cough History of Present Illness Patient is a 24 yo male with PMH of asthma and recurrent ear infections presented to [facility] ER with bilateral lower extremity and abdominal swelling and pain after he was advised by his fitter's assistant after the office appointment. Patient reported that he has 1 week of bilateral lower extremity and abdominal swelling for a week. He went to his PCP last Thursday, and went to [place] ER last Thursday. He was subsequently set up his first nephrology appointment with Dr. Fuentes on 05/04/2020 for possible nephrotic disease with planned kidney biopsy this coming Thursday per patient; patient reported that he was advised to come to ED due to the swelling and concerns for clots. He reported epigastric and bilateral lower quadrant abdominal pain which is sharp, intermittent, rated 6.5-7/10, alleviated by reclining position, aggravated by laying down; reported the swelling and pain in his b/l LE and abdomen are stable. Denies nausea, vomiting, fever, or chills. Denies chest pain, palpitations, or dyspnea; reported exertional dyspnea while climbing stairs since Thursday which resolves with resting. 20lb weight gain for a week without diet changes. Pt reported he was advised today to start salt restriction; he is not yet on fluid restriction. Denies calf pain but reported tightness in b/l popliteal fossa since Thursday, rated 7/10, worse with walking, improves with massaging. Home Medications Scheduled Atorvastatin Calcium (Lipitor) 20 Mg Tablet, 20 MG PO DAILY, (Reported) Furosemide (Lasix) 40 Mg Tablet, 40 MG PO DAILY, (Reported) Magnesium Oxide (Magnesium) 500 Mg Capsule, 500 MG PO DAILY, (Reported) Allergies Coded Allergies: No Known Allergies (Verified Allergy, Unknown, 05/04/20) Past Medical History Medical History Asthma Recurrent ear infection in the past Proteinuria/hematuria/hypoalbuinemia Dyslipidemia Hyponatreamia(Cl=790 [place] 05/02/2020) Surgical History bilateral ear tube placement Family History Father has unspecified heart disease, reported to have a pacemaker Denies family hx of kidney disease, lupus/RA Social History * Smoker: Denies Alcohol: Denies Drugs: denies Denies pets at home A-FIB/CHADSVASC A-FIB History Current/History of A-Fib/PAF?: No Review of Systems Constitutional: Denies: Chills, Fever Eyes: Denies: Vision change ENT: Denies: Dysphagia, Sore Throat Skin: Reports: Other (swelling in b/l LE and abdomen/abdominal wall) Pulmonary: Reports: Cough (dry cough since Thursday); Denies: Dyspnea Cardiovascular: Reports: Edema, Other Symptoms (exertional dyspnea); Denies: Chest Pain, Palpitations Gastrointestinal: Reports: Abdominal Pain; Denies: Nausea, Vomiting, Diarrhea, Constipation, Hematochezia Genitourinary: Denies: Dysuria, Frequency, Hematuria Musculoskeletal: Reports: Other Symptoms (tightness in post); Denies: Leg Pain Neurological: Reports: Other Symptoms (Denies tingling or loss of sensation); Denies: Numbness Physical Examination General Exam: Positive: Alert, Cooperative, No Acute Distress Eye Exam: Positive: Conjunctiva & lids normal; Negative: Sclera icteric ENT Exam: Positive: Mucous membr. moist/pink Neck Exam: Positive: Supple Chest Exam: Positive: Clear to auscultation, Normal air movement; Negative: Rales, Rhonchi, Wheezing Heart Exam: Positive: Rate Normal, Regular Rhythm, Normal S1, Normal S2 Abdomen Exam: Positive: Normal bowel sounds, Soft, Tenderness (diffuse), Other (No guarding) Skin Exam: Positive: Other skin issue (+1-2 edema on left lower extremity. +1 edema on right lower extremity. Neg calf tenderness bilaterally ) Neuro Exam: Positive: Normal Speech, Normal Tone Psych Exam: Positive: Mood NL, Memory Intact Vital Signs Vital Signs Date Time Temp Pulse Resp B/P (MAP) Pulse Ox O2 Delivery O2 Flow Rate FiO2 05/04/20 21:00 98.2 64 14 121/58 (79) 99 Room Air Laboratory Data Labs 24H Laboratory Tests 2 05/04/20 18:03: Immature Granulocyte % (Auto) 0.2, Neutrophils (%) (Auto) 59.4, Lymphocytes (%) (Auto) 25.8, Monocytes (%) (Auto) 8.7H, Eosinophils (%) (Auto) 4.9H, Basophils (%) (Auto) 1.0, Neutrophils # (Auto) 5.4, Lymphocytes # (Auto) 2.3, Monocytes # (Auto) 0.8, Eosinophils # (Auto) 0.4, Basophils # (Auto) 0.1, Nucleated Red Blood Cells % (auto) 0.0, Anion Gap 2L, Glomerular Filtration Rate > 60.0, Calcium Level 7.7L, Magnesium Level 1.9, Total Bilirubin 0.3, Direct Bilirubin < 0.1, Aspartate Amino Transf (AST/SGOT) 19, Alanine Aminotransferase (ALT/SGPT) 23, Alkaline Phosphatase 83, Total Protein 3.7L, Albumin 0.8L, Albumin/Globulin Ratio 0.3, Lipase 84, Coronavirus (COVID-19)(PCR) NEGATIVE, Influenza Type A (RT-PCR) NEGATIVE, Influenza Type B (RT-PCR) NEGATIVE, Respiratory Syncytial Virus (PCR) NEGATIVE 05/04/20 18:04: Urine Color STRAW, Urine Appearance CLEAR, Urine pH 6.0, Urine Specific [place] 1.002, Urine Protein 3+H, Urine Glucose (UA) NEGATIVE, Urine Ketones NEGATIVE, Urine Blood NEGATIVE, Urine Nitrite NEGATIVE, Urine Bilirubin NEGATIVE, Urine Urobilinogen 0.2, Urine Leukocyte Esterase NEGATIVE, Urine WBC (Auto) 0, Urine RBC (Auto) 0, Urine Hyaline Casts (Auto) 0, Urine Bacteria (Auto) NEGATIVE, Urine Squamous Epithelial Cells 0, Urine Sperm (Auto) CBC/BMP Laboratory Tests 05/04/20 18:03 Assessment/Plan 1. Ascites and pleural effusion likely 2/2 nephrotic syndrome -Hospitalist team discussed with nephrology, and nephrology recommended IV steroid which nephrology will manage. Received IV methylprednisolone -Nephrology recommended avoiding diuretics/ARBs, and we appreciate nephrology team's input -fluid restriction, salt restriction, continue home lasix for now -Renal biopsy planned by nephrology to be done by IR -vital signs, serial BMP -patient has no fever, leukocytosis, nausea, vomiting, or abdominal guarding 2. Hypercoagulable state due to nephrotic syndrome -Hospitalist team discussed with nephrology, and Dr. Fuentes recommended starting full dose heparin drip -PTT Q6H, occult blood for stool, monitor for bleeding -repeat cardiac marker and EKG, d-dimer, vital signs 3. Dyslipidemia -Continue home med Lipitor DVT prophylaxis: patient on heparin drip Plan / VTE VTE Prophylaxis Ordered?: Yes GME ATTESTATION GME ATTESTATION My faculty preceptor for this patient encounter was physically present during the encounter and was fully available. All aspects of the patient interview, examination, medical decision making process, and medical care plan development were reviewed and approved by the faculty preceptor. The faculty preceptor is aware and concurs with the plan as stated in the body of this note and will at test to such by his/her cosignature. ATTENDING NOTE I, Aj Prado DO, performed a history and physical examination of the patient and discussed his management with the resident, Meir Pederson DO. I reviewed the resident's note and agree with the documented findings and plan of care. MEIR PEDERSON DO May 04, 2020 22:27 AJ PRADO DO May 05, 2020 09:17
--- OUTSIDE RECORDS SUMMARY | 2020-05-04 22:58 | CCD ---
Author Author [facility] Organization [facility] Address Unknown Phone Unavailable Care Team Providers Care Organizational Psychologist Name Role Phone TURRIN, CROW Unavailable Unavailable [...] is protected by Article 27-F of the [facility] Public Health law. If you continue you may have access to information: Regarding HIV / AIDS; Provided by facilities licensed or operated by the [facility] Office of Mental Health; or Provided by the [facility] Office for People With Developmental Disabilities. If such information is present, then the following [facility] mandated warning applies: This information has [...] law may result in a fine or mcc sentence or both. A general authorization for the release of medical or other information is NOT sufficient authorization for further disc losure. Encounters Encounter Providers Location Date Indications Data Source(s ) Emergency Attender: CROW ANDERSONConsultant: PHIL OSBORNE 05/02/2020 02:14:00 PM EST - 05/02/2020 06:01:[address] [facility] [place] Patient discharged. Insurance Providers Payer name Policy type / Coverage type Policy ID Covered democrat ID Covered democrat's relationship to isbell Policy Isbell Plan Information [employer] [id number] SP [id number] ACTIVE [employer]Y [id number] SP [id number] [employer] - O/P [id number] 18 [id number] Results ID Date Data Source [id number] 05/03/2020 09:41:00 [place] [address] PHONE: [phone] FAX: [phone] Name .................. : RHYS CHILDRESS Walter Acct Number.................. : [id number] ROOM. ................. : TR-02 Number ................... : [id number] Stay type ............. : E/R Discharge Date......... ... : Admit Date ......... : 04/23 Admit Phys .................... : JUSTIN WILLETT Date of ....... : 1995 Family Phys ................... : UNKNOWN CO Phone .................. : [phone] Age ................................ : 24 Film# .................. .:[id number] Sex ................................. : M Unsigned transcriptions are preliminary reports and do not represent a medical or legal document CHEST 2 VIEWS 35204 COMPLETE:05/02/20 15:02 FLO 4013 Reason(s): Chest Pain [...] rce(s) Supporting Document(s) ID Date Data Source [id number] 05/03/2020 09:33:00 [place] [address] PHONE: [phone] FAX: [phone] Name .................. : RHYS Watson Acct Number.................. : [id number] ROOM. ................. : TR-02 MR Number ................... : [id number] Stay type ............. : E/R Discharge Date......... ... : 05/02/20 Admit Date ....... .. : 05/02/20 Admit Phys .................... : JUSTIN WILLETT Date of ....... : 1995 Family Phys ................... : UNKNOWN CO Phone .................. : [phone] Age ................................ : 24 Film# .................. .:[id number] Sex ................................. : M Unsigned transcriptions are preliminary reports and do not represent a medical or legal document CT CTA CHEST NON-CORONARY [facility] 75167 COMPLETE:05/02/20 18:25 [facility] 4021 Reason(s): CP, SOB, High d-dimer CTA [...] dose: 437.[address]Gy[address] [facility] [address] [place] [address] PHONE: [phone] FAX: [phone] Name .................. : RHYS Watson Acct Number.................. : [id number] ROOM. ................. : TR-02 MR Number ................... : [id number] Stay type ............. : E/R Discharge Date......... ... : 05/02/20 Admit Date ......... : 05/02/20 Admit Phys .................... : JUSTIN WILLETT Date of ..... .. : 1995 Family Phys ................... : UNKNOWN CO Phone .................. : [phone] Age ................................ : 24 Film# .................. .:[id number] Sex ................................. : M Unsigned transcriptions are preliminary reports and do not represent a medical or legal document CT CTA CHEST NON-CORONARY [facility] 29614 COMPLETE:05/02/20 18:25 [facility] [place] 4021 Reason(s): CP, SOB, High d-dimer Contrast agent in mL: 75 Isovue 370 Method of administration: Intravenous Electronically Reviewed and Signed By Manish Petit MD , 05/03/20 09:33, SERGIO Transcribe Initials: EDGAR , Transcribe Date: 05/02/20 22:38, Dictation Date: Copy for: [place]PT [place] [facility] [place] Copy for: 710 MED REC DISCHARGED Page 2 of 2 Name Value Range Interpretation Code Description Data Citlaly rce(s) Supporting Document(s) ID Date Data Source [id number] 05/03/2020 09:19:00 AM EST [facility] [address] [place] [address] PHONE: [phone] FAX: [phone] Name .................. : RHYS CHILDRESS Walter Acct Number.................. : [id number] ROOM. ................. : TR-02 MR Number ................... : [id number] Stay type ............. : E/R Discharge Date......... ... : 05/02/20 Admit Date ....... .. : 05/02/20 Admit Phys .................... : JUSTIN WILLETT Date of ....... : 1995 Family Phys ................... : UNKNOWN CO Phone .................. : [phone] Age ................................ : 24 Film# .................. .:[id number] Sex ................................. : M Unsigned transcriptions are preliminary reports and do not represent a medical or legal document CT ABD & PELV W/[place] ORAL W/[place] [address] COMPLETE:05/02/20 17:15 FLO 4030 Reason(s): Proteinuria, hy [...] 21:49, Dictation Date: Page 1 of 2 [place] [address] PHONE: [phone] FAX: [phone] Name .................. : RHYS FIOR R Acct Number.................. : [id number] ROOM. ................. : TR-02 MR Number ................... : [id number] Stay type ............. : E/R Discharge Date......... ... : 05/02/20 Admit Date ......... : 05/02/20 Admit Phys .................... : JUSTIN WILLETT Date of ....... : 1995 Family Phys ................... : UNKNOWN CO Phone .................. : [phone] Age ................................ : 24 Film# .................. .:[id number] Sex ................................. : M Unsigned transcriptions are preliminary reports and do not represent a medical or legal document CT ABD & PEL[place] W/[place] OR[place] W/[place] [address] COMPLETE:05/02/20 17:15 FLO 4030 Reason(s): Proteinuria, hypoalbuminemia, hematuria Copy for: EMERGENCY DEPT via mode Copy for: 710 MED REC DISCHARGED Page 2 of 2 Name Value Range Interpretation Code Description Data Citlaly rce(s) Supporting Document(s) ID Date Data Source [id number] 05/03/2020 02:25:00 [place] [address] RESPIRATORY CARE REPORT ==== ---------NAME------- NUMBER SEX AGE ADMIT DISC. XRAY# F/C KELLI Watson [id number] 24 05/02/20 05/02/20 [id number] SB4 E/R DATE OF : 1995 M/R# [id number] PH#: [phone] TR-02 LOCATION: [place] [address] COMPLE TE:05/02/20 15:52 [place] [address] PHYSICIAN: JUSTIN WILLETT Name Value Range Interpretation Code Description Data Citlaly rce(s) Supporting Document(s) ID Date Data Source [id number] 05/02/2020 02:14:[address] [facility] [place] 1 OrderSheet [facility] Emergency Department [address] [place] [address] Phone #: ext- [phone] 05/02/2020 13:52 Patient: [...] Description Priority Entered Acknowledged Initialed 2 OrderSheet [facility] Emergency Department [address] [place] [address] Phone #: ext- [phone] 05/02/2020 13:52 Patient: [...] 14:20 05/02/2020 14:24 Jocelyn,Monitor Crow Anderson R.N. M.D.;Manual Equipment Mechanic 14:20 05/02/2020 14:24 Jocelyn,(continuous) Crow Anderson R.N. M.D.;EKG 14:20 05/02/2020 14:58 Justin Banks Riccardo Jessica R.N. M.D.;NPO 14:20 05/02/2020 14:24 Justin Banks Riccardo Jessica R.N. M.D.;Obtain Old EKG 14:20 05/02/2020 14:33 Justin Banks Riccardo Jessica R.N. M.D.;Obtain Old Records 14:20 05/02/2020 14:33 Justin Banks Riccardo Jessica R.N. M.D.; 3 OrderSheet [facility] Emergency Department [address] [place] [address] Phone #: ext- [phone] 05/02/2020 13:52 Patient: [...] rce(s) Supporting Document(s) ID Date Data Source [id number] 05/02/2020 02:14:00 PM [place] [address] Medication Reconciliation Report [facility] Emergency Department [address] [place] [address] Phone #: ext [phone] 05/02/2020 13:52 Patient: FIOR JOINER Sex: M [...] Value Range Interpretation Code Description Data [facility](s) Supporting Document(s) ID Date Data Source [id number] 05/02/2020 02:14:00 PM [place] [address] Medication Administration Record [facility] Emergency Department [address] [place] [address] Phone #: ext [phone] 05/02/2020 13:52 Patient: FIOR JOINER Sex: M : 1995 Age: 24yWeight: 78.4 kgHeight/Length: 71 inBMI: 24.1ALLERGIES: No Known Drug Allergy Date/Time Medication Administered Medication OrderedGiven ATIVAN [PO] (LORAZEPAM) Ativan PO 1 mg14:35 05/02/2020 Dose: 2 mg Tablets Yolanda Solares R.N. Name Value Range Interpretation Code Description Data Citlaly rce(s) Supporting Document(s) ID Date Data Source [id number] 05/02/2020 02:14:00 PM EST [facility] 1 General Instructions [facility] Emergency Department [address] [place] [address] Phone #: ext- [phone] 05/02/2020 13:52 Patient: [...] ON POST TOMORROW FOR NEPHROLOGY REFERRAL DUSTIN CLAUDOIRE OUT WHY YOU HAVE LOW PROTEINS, LOW [...] patient via paper. Follow up with a tea blender in two days even if well. Callfor an appointment. Reason for referral: evaluation and treatment. Summary of care provided to patient viapaper.Understanding of the discharge instructions verbalized by patient. Expected course of illness, dischargeinstructions, activity level, diet, follow- up appointment and risks and benefits of treatment reviewed withpatient and unde rstanding verbalized. Agrees to plan of care. 2 General Instructions [facility] Emergency Department [address] [place] [address] Phone #: ext- [phone] 05/02/2020 13:52 Patient: FIOR JOINER Sex: M : 1995 Age: 24yNo strenuous activity until released. Return to work when released by doctor.(Electronically signed by Crow Anderson M.D. 05/02/2020 21:04) Name Value Range Interpretation Code Description Data Citlaly rce(s) Supporting Document(s) ID Date Data Source [id number] 05/02/2020 02:14:00 PM EST [facility] 1 Clinical Report - Nurses [facility] Emergency Department [address] [place] [address] Phone #: ext- [phone] 05/02/2020 13:52 Patient: FIOR JOINER Sex: M : 1995 Age: 24yTRIAGEArrived by private vehicle. Historian: patient.Acuity: LEVEL 3.Chief Complaint: CHEST DISCOMFORT and SHORTNESS OF BREATH (leg swelling).Alert. No acute distress.( PT says Thursday he began having swelling in his legs. He went to the [facility] clinic yesterday and had xrays, but [...] has not had any in 3 days.).Treatment RN DOCUMENTATION:None.SEPSIS SCREEN: SIRS SCREEN NEGATIVE. SEPSIS SCREEN NEGATIVE. [...] Riddle R.N. 2 Clinical Report - Nurses [facility] Emergency Department [address] [place] [address] Phone #: ext- [phone] 05/02/2020 13:52 Patient: FIOR JOINER [facility]#: [id number] Sex: M : 1995 Age: 24y History [...] Call light 3 Clinical Report - Nurses [facility] Emergency Department [address] [place] [address] Phone #: ext- [phone] 05/02/2020 13:52 Patient: FIOR JOINER Sex: M [...] Patient transported to radiology by wheelchair with instructional design technologist. --14:24 05/02/20 Yolanda Banks R.N. 14:34 05/02/20. Patient returned from radiology by wheelchair with instructional design technologist. --14:36 05/02/20 Yolanda Banks R.N. 14:35 05/02/2020 Ativan (LORazepam) PO Tablets 2 mg given. Allergies verified and confirmed 5 rights. Information reviewed with patient. --14:35 05/02/20 Yolanda Banks R.N. 15:03 05/02/20. BP: 111/50. MAP: 70. HR: 75. RR: 21. O2 saturation: 99%. --15:04 05/02/20 [place] student financial aid manager, [facility] Tech1 16:00 05/02/20. BP: 117/59. MAP: 78. HR: 79. RR: 18. O2 saturation: 99%. --16:00 05/02/20 [place] student financial aid manager, [facility] Tech1 Patient transported to [place] by wheelchair with instructional design technologist. --16:04 05/02/20 Yolanda Banks R.N. 17:04 05/02/20. BP: 111/58. MAP: 75. HR: 81. RR: 20. O2 saturation: 99%. --17:05 05/02/20 [facility], [facility] Tech 18:00 05/02/2020 Site #1 removed upon discharge. Bandaid applied. --18:00 05/02/20 Yolanda Banks R.N.DISPOSITION / DISCHARGE 17:42 05/02/20. BP: 118/61. MAP: 80. HR: 70. RR: 18. O2 saturation: 99%. Temp: 98.1 F. Pain level now: 07/30. --17:43 05/02/20 [facility], [place] [address] No learning barriers present. Discharge instructions provided and reviewed with the patient. Reviewed referral to a tea blender for followup. Reviewed need for increased fluid intake. Activity restrictions (rest) reviewed. Work note given. Patient verbalized understanding. Written instructions provided in Moldovan. --18:01 05/02/20 Yolanda Banks R.N. Departure time: 18:01 05/02/2020. --18:01 05/02/20 Yolanda Banks R.N.Locked/Released at 05/02/2020 18:01 by Yolanda Banks R.N. 4 Clinical Report - Nurses [facility] Emergency Department [address] [place] [address] Phone #: ext- [phone] 05/02/2020 13:52 Patient: FIOR JOINER Sex: M : 1995 Age: 24y Name Value Range Interpretation Code Description Data Citlaly rce(s) Supporting Document(s) ID Date Data Source [id number] 05/02/2020 02:14:00 PM EST [facility] 1 Clinical Report - Physicians/Mid Levels [facility] Emergency Department [address] [place] [address] Phone #: ext- [phone] 05/02/2020 13:52 Patient: [...] on exertion. 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 2 Clinical Report - Physicians/Mid Levels [facility] Emergency Department [address] [place] [address] Phone #: ext- [phone] 05/02/2020 13:52 [id number] Sex: [facility] : 1995 Age: 24yADDITIONAL NOTESThe [...] making process. TSH: (SHAY: 05/02/2020 14:30) ( [facility] 05/02[place] 18:15) Final results Test Result Flag Units (Reference) TSH 8.66 H uIU/mL (0.47 - 5.01) HbA1C: (SHAY: 05/02/2020 14:30) ( MsgRcvd 05/02/2020 18:14) Final results Test Result Flag Units (Reference) HGB A1C 4.8 % (4.4 - 6.1) {A1]{HB] 3 Clinical Report - Physicians/Mid Levels [facility] Emergency Department [address] [place] [address] Phone #: ext- [phone] 05/02/2020 13:52 Patient: FIOR JOINER [facility]#: [id number] Sex: M : 1995 Age: 24yCT ABD [...] 4.97 3.55 2X AVERAGE 9.55 6.25 3X QQCEUCA89.99 7.99WOMEN: 1/2 AVERAGE 3.27 1.47 AVERAGE 4.443.22 2X AVERAGE 7.05 5.03 3X AVERAGE 11.04 6.14CBC w Diff: (SHAY: 05/02/2020 14:30) ( MsgRcvd 05/02/2020 14:59) Final results Test Result Flag Units (Reference) CBC W/AUTOMATED DIFF COMPLETE BLOOD COUNT WBC 7.3 10/uL (4.2 - 11.0) 4 Clinical Report - Physicians/Mid Levels [facility] Emergency Department [address] [place] [address] Phone #: ext- [phone] 05/02/2020 13:52 Patient: [...] Male GFR Interprentation 20-49 yrs >60 mL/min Qaakrg54-04 yrs >56 mL/min Normal 60-69 yrs >49 mL/min Normal 70-79yrs>42 mL/min Normal 80 and above >35 mL/min Normal Female GFRInterpretation 20-39 yrs >60 mL/min Normal 40-49 yrs >58 mL/minNormal 50-59 yrs >51 mL/min Normal 60-69 yrs >45 mL/min Xltmex02-62 yrs >39 mL/min Normal 80 and above >32 mL/min NormalLipase: (SHAY: 05/02/2020 14:30) ( MsgRcvd 05/02/2020 15:08) Final results 5 Clinical Report - Physicians/Mid Levels [facility] Emergency Department [address] [place] [address] Phone #: ext- [phone] 05/02/2020 13:52 Patient: [...] VenousThrombosis, Pulmonary Embolus, Tissue heart valves, Acute PA Atrial Fibrillation, Valvular heart diseaseand recurrent Systemic Embolism. - International Normalized Ratio (INR): 2.5 - 3.5 forMechanical Pros thetic valve.Troponin-T: (SHAY: 05/02/2020 14:30) ( [facility]/02/[facility] 15:05) Final results Test Result Flag Units (Reference) TROPONIN T <0.01 NG/ML (0.00 - 0.10) TROPONIN T0.1 ng/ml Recommended as the clinical threshold value forTroponin T.BNP: (SHAY: 05/02/2020 14:30) ( [facility] 05/02/2020 15:08) Final results Test Result Flag Units (Reference) BNP 9 PG/ML (0 - 125)D-Dimer: (SHAY: 05/02/2020 14:30) ( [facility] 05/02/2020 15:12) Final results Test Result Flag Units (Reference) D-DIMER QUANT 2.13 H ug/mL (0.27 - 0.50)Chest 2 View: (SHAY: 05/02/2020 14:20) ( [facility] 05/02/2020 16:08) In ProgressCHEST 2 VIEWSReason(s): Chest PainTRANSPORTATION: WC IV? O2? Oxygen?(No) Room: ED Exam [place]ST [address] [place] [address] PHONE: [phone] FAX: [phone] Name .................. : RHYS Watson Acct Number..... ............. : [id number] ROOM. ................. : TR MR Number ................... : [id number] Stay type ............. : E/R Discharge Date......... ... : Admit Date ......... : 05/02/20 Admit Phys .................... : JUSTIN TAMIE Date of ....... : 1995 Family Phys ................... : UNKNOWN CO Phone .................. : [phone] Age ................................ : 24 Film# .................. .:[id number] Sex ................................. : M Unsigned transcriptions are preliminary reports and do not represent a medical or legal document CHEST 2 VIEWS 14430 COMPLETE:05/02/20 15:02 FLO 4013 Reason(s): Chest Pain Shortness of Breath 6 Clinical Report - Physicians/Mid Levels [facility] Emergency Department [address] [place] [address] Phone #: [phone]- [phone] 05/02/2020 13:52 Patient: FIOR JOINER Sex: M [...] have nephrotic syndrome and needs to see tea blender GONZÁLEZ via referral on Post, for further [...] improved; 7 Clinical Report - Physicians/Mid Levels [facility] Emergency Department [address] [place] [address] Phone #: ext- [phone] 05/02/2020 13:52 [id number] Sex: M : 1995 Age: 24y patient [...] patient via paper. Follow up with a tea blender in two days even if well. Call for an appointment. Reason for referral: evaluation and treatment. Summary of care provided to patient via paper. 8 Clinical Report - Physicians/Mid Levels [facility] Emergency Department [address] [place] [address] Phone #: ext- [phone] 05/02/2020 13:52 Patient: FIOR JOINER [facility]#: [id number] Sex: M : 1995 Age: 24y Understanding [...] rce(s) Supporting Document(s) ID Date Data Source [id number] 05/02/2020 04:21:00 PM EST [facility] Name Value Range Interpretation Code Description Data Citlaly rce(s) Supporting Document(s) [facility] COL[facility] yellow NORMAL: Yellow [facility] CLARITY clear NORMAL: Clear [facility] Specific gravity of Urine by Test strip 1.015 1.001 - 1.030 [facility] pH 6 5 - 9 [facility] al Glucose [Mass/volume] in Urine by Test strip NORM NORMAL: Negat rodrigo [facility] Bilirubin.total [Presence] in Urine by Test strip NEG NORMAL: Negative [facility] Ketones [Presence] in Urine by Test strip NEG NORMAL: Negative [facility] Protein [Mass/volume] in Urine by Test strip 500 NORMAL: Negat rodrigo [facility] Nitrite [Presence] in Urine by Test strip NEG NORMAL: Negative [facility] BLOOD 25 NORMAL: Negative [facility] Leukocyte esterase [Presence] in Urine by Test strip NEG KENJI L: Negative [facility] Urobilinogen [Mass/volume] in Urine by Test strip NOR less divya n 1.0 mg/dL [facility] MICROSCOPIC See Below [facility] ital WBC 1 - 3 NORMAL: NONE SEEN [facility] ID Date Data Source [id number] 05/04/2020 09:09:[address] [facility] [place] Name Value Range Interpretation Code Description Data Citlaly rce(s) Supporting Document(s) Triiodothyronine (T3) Free [Mass/volume] in Serum or Plasma 2.0 pg/ mL 2.0-4.4 [facility] ID Date Data Source [id number] 05/02/2020 10:39:[address] [facility] [place] Name Value Range Interpretation Code Description Data Citlaly rce(s) Supporting Document(s) Thyroxine (T4) free index in Serum or Plasma by calculation 0.77 NG/DL 0.93 - 1.70 L [facility] ID Date Data Source [id number] 05/02/2020 06:15:00 PM [facility] Value Range Interpretation Code Description Data Citlaly rce(s) Supporting Document(s) Thyrotropin [Units/volume] in Serum or Plasma by Detec tion limit <= 0.05 mIU/L 8.66 uIU/mL 0.47 - 5.01 H [facility] ID Date Data Source [id number] 05/02/2020 06:14:[address] [facility] [place] Name Value Range Interpretation Code Description Data Citlaly rce(s) Supporting Document(s) Hemoglobin A1c/Hemoglobin.total in Blood 4.8 % 4.4 - 6.1 [facility] {A1]{HB] ID Date Data Source [id number] 05/02/2020 04:37:[address] [facility] [place] Name Value Range Interpretation Code Description Data Citlaly rce(s) Supporting Document(s) CVE PANEL [facility] al LIPID PANEL Cholesterol [Mass/volume] in Serum or Plasma 332 MG/DL 131 - 200 H [facility] Deprecated Triglyceride [Mass/volume] in Serum or Plasma 91 MG/DL 3 5 - 160 [facility] Cholesterol in LDL [Mass/volume] in Serum or Plasma by Direc t assay 216 mg/dL 65 - 175 H [facility] CVE RISK CHOL/HDL LDL/HDLMEN: 1/2 AVERAGE 3.43 1.00 AVERAGE 4.97 3.55 2X AVERAGE 9.55 6.25 3X AVERAGE 23.99 7.99WOMEN: 1/2 AVERAGE 3.27 1.47 AVERAGE 4.44 3.22 2X AVERAGE 7.05 5.03 3X AVERAGE 11.04 6.14 ID Date Data Source [id number] 05/02/2020 03:12:00 PM EST [facility] Name Value Range Interpretation Code Description Data Citlaly rce(s) Supporting Document(s) COMPREHENSIVE METABOLIC PANEL [facility] COMPREHENSIVE METABOLIC PANEL Sodium [Moles/volume] in Serum or Plasma 133 mEq/L 134 - 153 L [facility] Potassium [Moles/volume] in Serum or Plasma 4.3 mEq/L 3.6 - 5.0 [facility] Chloride [Moles/volume] in Serum or Plasma 100 mEq/L 98 - 107 [facility] Carbon dioxide, total [Moles/volume] in Serum or Plasma 28 MEQ/L 22 - 30 [facility] Glucose [Mass/volume] in Serum or Plasma 113 MG/DL 70 - 99 H [facility] BUN 19 MG/DL 7 - 21 [facility] Creatinine [Mass/volume] in Serum or Plasma 0.8 MG/DL 0.7 - 1.5 [facility] BUN/CREAT 24 8 - 27 [facility] al Protein [Mass/volume] in Serum or Plasma 3.4 G/DL 6.3 - 8.2 L [facility] Albumin [Mass/volume] in Serum or Plasma 1.7 G/DL 3.9 - 5.0 L [facility] Globulin [Mass/volume] in Serum by calculation 1.7 GM/DL 2.4 - 3.2 L [facility] A/G RATIO 1.0 0.8 - 2.0 [facility] Calcium [Mass/volume] in Serum or Plasma 7.7 MG/DL 8.4 - 10.2 L [facility] Bilirubin.total [Mass/volume] in Serum or Plasma <0.7 MG/DL 0.2 - 1.3 [facility] Alkaline phosphatase [Enzymatic activity/volume] in Serum or Plasma 88 U/L 38 - 126 [facility] [facility] Aspartate aminotransferase [Enzymatic activity/volume] in Serum or Plasma 23 U/L 5 - 40 [facility] Alanine aminotransferase [Enzymatic activity/volume] in Seru m or Plasma 26 U/L 7 - 56 [facility] Anion gap 3 in Serum or Plasma 5.0 mmol/L 8.0 - 16.0 L [facility] 24 [facility]60 [facility]/min [facility] ital AFR AMER GFR >60 mL/min [facility] spital Male GFR In terprentation 20-49 [...] >32 mL/min Normal ID Date Data Source [id number] 05/02/2020 03:11:00 PM [facility] Value Range Interpretation Code Description Data Citlaly rce(s) Supporting Document(s) Fibrin D-dimer FEU [Mass/volume] in Platelet poor plasma 2.13 ug /mL 0.27 - 0.50 H [facility] ID Date Data Source [id number] 05/02/2020 03:08:00 PM [facility] Value Range Interpretation Code Description Data Citlaly rce(s) Supporting Document(s) BNP 9 PG/ML 0 - 125 [facility] al ID Date Data Source [id number] 05/02/2020 03:07:00 PM [facility] Value Range Interpretation Code Description Data Citlaly rce(s) Supporting Document(s) Lipase [Enzymatic activity/volume] in Serum or Plasma 15 U/L 13 - 60 [facility] ID Date Data Source [id number] 05/02/2020 03:05:00 PM [facility] Value Range Interpretation Code Description Data Citlaly rce(s) Supporting Document(s) TROPONIN T <0.01 NG/ML 0.00 - 0.10 [facility] ospital TROPONIN T0.1 ng/ml Recommended as the c linical threshold value Zak Skinner. ID Date Data Source [id number] 05/02/2020 02:59:00 PM EST [facility] Name Value Range Interpretation Code Description Data Citlaly rce(s) Supporting Document(s) CBC W/AUTOMATED DIFF [facility] COMPLETE BLOOD COUNT Leukocytes [#/volume] in Blood by Automated count 7.3 10^3/uL 4.2 - 1 1.0 [facility] Erythrocytes [#/volume] in Blood by Automated count 5.58 10^6/uL 4. 50 - 6.30 [facility] Hemoglobin [Mass/volume] in Blood 18.4 g/dL 14.0 - 16.0 H [facility] Hematocrit [Volume Fraction] of Blood by Automated count 50.2 % 4 1.0 - 51.0 [facility] Erythrocyte mean corpuscular volume [Entitic volume] by Auto mated count 90.0 fL 80.0 - 94.0 [facility] Erythrocyte mean corpuscular hemoglobin [Entitic mass] by Automated count 33.0 pg 27.0 - 34.0 [facility] Erythrocyte mean corpuscular hemoglobin concentration [Mass/volume] by Automated count 36.7 g/dL 31.0 - 36.0 H [facility] Erythrocyte distribution width [Ratio] by Automated count 11.9 % 11.5 - 14.8 [facility] Platelets [#/volume] in Blood by Automated count 280 10^3/uL 150 - 45 0 [facility] Platelet mean volume [Entitic volume] in Blood by Automated count 8.4 fL 7.4 - 10.4 [facility] Neutrophils/100 leukocytes in Blood by Automated count 60.2 % 37. 0 - 80.0 [facility] Lymphocytes/100 leukocytes in Blood by Manual count 26.8 % 25.0 - 40.0 [facility] Monocytes/100 leukocytes in Blood by Automated count 6.1 % 3.0 - 8.0 [facility] Eosinophils/100 leukocytes in Blood by Automated count 5.4 % 0.0 - 7.0 [facility] Basophils/100 leukocytes in Blood by Automated count 1.4 % 0.0 - 2.0 [facility] %IG 0.1 % 0.0 - 0.0 [facility] %[facility] 0.0 % 0.0 - 0.0 [facility] al Neutrophils [#/volume] in Blood by Automated count 4.41 10^3/uL 2.00 - 6.90 [facility] Lymphocytes [#/volume] in Blood by Automated count 1.97 10^3/uL 0.60 - 3.40 [facility] Monocytes [#/volume] in Blood by Automated count 0.45 10^3/uL 0.00 - 0.90 [facility] Eosinophils [#/volume] in Blood by Automated count 0.40 10^3/uL 0.00 - 0.70 [facility] Basophils [#/volume] in Blood by Automated count 0.10 10^3/uL 0.00 - 0.20 [facility] #IG 0.01 10^3/uL 0.00 - 0.10 [facility] ospital #NRBC 0.00 10^3/uL 0.00 - 0.00 [facility] ospital MANUAL DIFF NOT INDICATED [facility] RBC MORPH NOT INDICATED [facility] spital ID Date Data Source [id number] 05/02/2020 02:58:00 PM EST [facility] Name Value Range Interpretation Code Description Data Citlaly rce(s) Supporting Document(s) Prothrombin time (PT) 13.1 SECONDS 11.0 - 15.5 [facility] INR in Platelet poor plasma by Coagulation assay 0.94 0.93 - 1. 23 [facility] aPTT in Blood by Coagulation assay 31.7 SECONDS 24.8 - 36.7 [facility] \\BLDo\\INR INTERPRETATION\\BLDx\\ Therapeutic range for Coumadin and related oral anticoagulants. - International Normalized Ratio (INR): 2.0 - 3.0 for Venous Thrombosis, Pulmonary Embolus, Tissue heart valves, Acute PA Atrial Fibrillation, Valvular heart disease and recurrent Systemic Embolism. - International Normalized Ratio (INR): 2.5 - 3.5 for Mechanical Prosthetic valve. Procedure
[2020-05-04 23:40] VITALS: BP 138/60
[2020-05-04 23:51] LABS: CK-MB VALUE MASS 1.4 NG/ML (<3.6); CPK CREATINE PHOSPHOKINASE 57 U/L (39-308); MAGNESIUM LEVEL 1.8 MG/DL (1.8-2.4); MB/CK RELATIVE INDEX 2.46 (< OR =4); TROPONIN I < 0.02 NG/ML (< 0.10)
[2020-05-05] MEDS: HEPARIN DRIP 25,000 UNITS in IV 1 EA IV SCH ×2 (01:14→13:03)
[2020-05-05 04:12] LABS: HEMATOCRIT 53.5 % (42.0-52.0); HEMOGLOBIN 18.6 g/dl (13.5-17.5); MEAN CORPUSCULAR HEMOGLOBIN 31.7 pg (27.0-33.0); MEAN CORPUSCULAR HGB CONC 34.8 g/dl (32.0-36.5); MEAN CORPUSCULAR VOLUME 91.1 fl (80.0-96.0); PLATELET COUNT, AUTOMATED 275 10^3/uL (150-450); RED BLOOD COUNT 5.87 10^6/uL (4.30-6.10); WHITE BLOOD COUNT 7.9 10^3/uL (4.0-10.0)
[2020-05-05 06:00] VITALS: BP 128/60
[2020-05-05 06:49] LABS: BLOOD UREA NITROGEN 18 MG/DL (7-18); CALCIUM LEVEL 7.3 MG/DL (8.5-10.1); CARBON DIOXIDE LEVEL 26 MEQ/L (21-32); CHLORIDE LEVEL 101 MEQ/L (98-107); CK-MB VALUE MASS 1.7 NG/ML (<3.6); CPK CREATINE PHOSPHOKINASE 78 U/L (39-308); CREATININE FOR GFR 1.06 MG/DL (0.70-1.30); GLOMERULAR FILTRATION RATE > 60.0 (>60); GLUCOSE, FASTING 168 MG/DL (70-100); MB/CK RELATIVE INDEX 2.18 (< OR =4); SODIUM LEVEL 137 MEQ/L (136-145); TROPONIN I < 0.02 NG/ML (< 0.10)
[2020-05-05] MEDS ORDERED: FUROSEMIDE 40 MG TAB PO SCH (09:00)
[2020-05-05 09:33] LABS: CHOLESTEROL RISK RATIO 2.969 (<5); FREE T4 0.67 NG/DL (0.76-1.46); THYROID STIMULATING HORMONE 7.59 uIU/ML (0.358-3.740)
[2020-05-05] MEDS: ATORVASTATIN 20 MG TAB PO SCH (09:53)
[2020-05-05] MEDS: MAGNESIUM OXIDE 400MG TAB (MAG-OX) PO SCH (09:53)
[2020-05-05 09:58] LABS: HEMOGLOBIN A1c 4.6 %
--- NOTE | 2020-05-05 11:14 | ECGEPIP ---
[facility] Test Date: 2020-05-05 Pat Name: FIOR JOINER Department: Room: [place] [address] Gender: Male Needleworker: : 1995 Requested By: MEIR PEDERSON Order Number: [id number] Reading MD: Abiel Cancino Measurements Intervals [place] Rate: 68 P: 66 MO: 179 QRS: 87 QRSD: 98 T: 54 QT: 369 QTc: 395 Interpretive Statements SINUS RHYTHM Comparison tracing not on file Electronically Signed on 05-05-2020 11:14:14 EST by Abiel Cancino
--- NOTE | 2020-05-05 13:25 | IPNPDOC ---
Date Seen The patient was seen on 05/05/20. Progress Note SUBJECTIVE: No acute complaints overnight. Mild abd discomfort but denies shortness of breath, fevers, chest pain, n/v/d. OBJECTIVE: PHYSICAL EXAMINATION: VS: Please see below CONSTITUTIONAL: No acute distress, resting comfortably, AAO x 3 EYES: PERRLA, EOM intact HENT, MOUTH: Normocephalic, atraumatic, moist mucous membranes NECK: SUPPLE, no JVD, no lymphadenopathy, no carotid bruit CV: Regular rate and rhythm, S1S2 normal, no murmurs/rubs/gallops RESPIRATORY: Clear to auscultation bilaterally, no rales/rhonchi/wheezes GI: BS positive in 4 quadrants, soft, nontender, nondistended, no rebound or guarding, no organomegaly : Deferred MUSCULOSKELETAL: Normal ROM. No cyanosis, clubbing, joint deformity, +1 nonpitting b/l lower extremity edema INTEGUMENTARY: Intact, no rashes, no lesions, no erythema NEUROLOGIC: Cranial Nerves II-XII are intact, no focal deficits PSYCHIATRIC: Mood and affect are normal CURRENT MEDICATIONS: Please see below LABORATORY DATA: Please see below IMAGING: CT abd/pelvis: 1. Bilateral small pleural effusions are present at the lung bases. 2. The heart size is normal. No evidence of CHF. 3. Diffuse body wall edema is seen in the abdomen and pelvis and proximal thighs consistent with underlying anasarca. 4. A moderate volume ascites is present. 5. Both kidneys appear normal. No hydronephrosis. 6. The urinary bladder is filled with urine. ASSESSMENT: 24 y/o M admitted for further treatment of nephrotic syndrome. PLAN: Nephrotic syndrome -C/w pulse dose steroids, low salt diet, fluid restriction -Avoiding diuretics per nephrology -Heparin gtt due to hypercoagulable state with loss of proteins -Renal biopsy planned by nephrology to be done by IR 05/07/20 -Nephrology following closely Bilateral pleural effusion likely 2/2 to fluid overload 2/2 to nephrotic syndrome -Saturating well on RA -C/w treatment above Ascites/Anasarca 2/2 to nephrotic syndrome -CT abd/pelvis: above -C/w treatment above HLD -Lipid panel abnormal -Continue Lipitor Hypothyroidism likely 2/2 to nephrotic syndrome -TSH mildly elevated -Monitor DVT px: -Heparin gtt DISPOSITION: Nephrology following closely. Plan is discharge home when medically improved. VS, I&O, 24H, Fishbone Vital Signs/I&O Vital Signs Date Time Temp Pulse Resp B/P (MAP) Pulse Ox O2 Delivery O2 Flow Rate FiO2 05/05/20 06:00 97.5 78 16 128/60 (82) 91 Room Air I&O- Last 24 Hours up to 6 AM 05/05/20 06:00 Intake Total 266 ml Balance 266 ml Laboratory Data 24H LABS Laboratory Tests 2 05/04/20 18:03: Immature Granulocyte % (Auto) 0.2, Neutrophils (%) (Auto) 59.4, Lymphocytes (%) (Auto) 25.8, Monocytes (%) (Auto) 8.7H, Eosinophils (%) (Auto) 4.9H, Basophils (%) (Auto) 1.0, Neutrophils # (Auto) 5.4, Lymphocytes # (Auto) 2.3, Monocytes # (Auto) 0.8, Eosinophils # (Auto) 0.4, Basophils # (Auto) 0.1, Nucleated Red Blood Cells % (auto) 0.0, Anion Gap 2L, Glomerular Filtration Rate > 60.0, Calcium Level 7.7L, Magnesium Level 1.9, Total Bilirubin 0.3, Direct Bilirubin < 0.1, Aspartate Amino Transf (AST/SGOT) 19, Alanine Aminotransferase (ALT/SGPT) 23, Alkaline Phosphatase 83, Total Protein 3.7L, Albumin 0.8L, Albumin/Globulin Ratio 0.3, Lipase 84, Coronavirus (COVID-19)(PCR) NEGATIVE, Influenza Type A (RT-PCR) NEGATIVE, Influenza Type B (RT-PCR) NEGATIVE, Respiratory Syncytial Virus (PCR) NEGATIVE 05/04/20 18:04: Urine Color STRAW, Urine Appearance CLEAR, Urine pH 6.0, Urine Specific [place] 1.002, Urine Protein 3+H, Urine Glucose (UA) NEGATIVE, Urine Ketones NEGATIVE, Urine Blood NEGATIVE, Urine Nitrite NEGATIVE, Urine Bilirubin NEGATIVE, Urine Urobilinogen 0.2, Urine Leukocyte Esterase NEGATIVE, Urine WBC (Auto) 0, Urine RBC (Auto) 0, Urine Hyaline Casts (Auto) 0, Urine Bacteria (Auto) NEGATIVE, Urine Squamous Epithelial Cells 0, Urine Sperm (Auto) 05/04/20 23:08: Magnesium Level 1.8, Activated Partial Thromboplast Time 37.5, Total Creatine Kinase 57, Creatine Kinase MB 1.4, Creatine Kinase MB Relative Index 2.46, Troponin I < 0.02 05/05/20 03:54: Nucleated Red Blood Cells % (auto) 0.0, Anion Gap 10, Glomerular Filtration Rate > 60.0, Calcium Level 7.3L, Total Creatine Kinase 78, Creatine Kinase MB 1.7, Creatine Kinase MB Relative Index 2.18, Troponin I < 0.02, D-Dimer, Quantitative 2058.95H 05/05/20 07:16: Triglycerides Level 58, Total Cholesterol 395H, LDL Cholesterol 250H, Non-HDL Ch olesterol (LDL + VLDL) 262, Total HDL Cholesterol 133, Cholesterol/HDL Ratio 2.969, Thyroid Stimulating Hormone (TSH) 7.590H, Free Thyroxine 0.67L 05/05/20 07:17: Activated Partial Thromboplast Time > 240.0*H, Estimated Mean Plasma Glucose 85, Hemoglobin A1c 4.6 CBC/BMP Laboratory Tests 05/04/20 18:03 05/05/20 03:54 Current Medications Current Medications Medications (Trade) Dose Ordered Sig/Coby Route PRN Reason Start Time Stop Time Status Last Admin Dose Admin Atorvastatin Calcium (Lipitor) 20 mg DAILY PO 05/05/20 09:00 05/05/20 09:53 Furosemide (Lasix) 40 mg DAILY PO 05/05/20 09:00 05/05/20 02:19 DC Heparin Sodium (Porcine) (Heparin) ASDIRECTED PRN IV SEE LABEL COMMENTS 05/04/20 22:15 Heparin Sodium (Porcine) 93495 units/IV Miscellaneous Supplies 250 ml @ 0 mls/hr Q0M IV 05/04/20 22:15 05/05/20 13:03 Home Med (Med Rec Complete!) ASDIRECTED XX 05/04/20 18:30 05/04/20 18:31 DC Magnesium Oxide (Mag-Ox) 400 mg DAILY PO 05/05/20 09:00 05/05/20 09:53 Non-Formulary Medication (Heparin Iv Rate Change Documentation ml/ Hr) ASDIRECTED XX 05/04/20 22:15 05/09/20 22:14 Pantoprazole Sodium (Protonix) 40 mg DAILY@2100 IV 05/05/20 21:00 Allergies Coded Allergies: No Known Allergies (Verified Allergy, Unknown, 05/04/20) Debbi Mancia MD May 05, 2020 13:25
[2020-05-05 14:00] VITALS: BP 143/68
--- NOTE | 2020-05-05 15:42 | CR ---
NEPHROLOGY CONSULTATION DATE: 05/05/2020 REQUESTING PHYSICIAN: Dr. Prado. REASON FOR CONSULTATION: New onset nephrotic syndrome. HISTORY OF PRESENT ILLNESS: Fabián Werner is a 24-year-old male with no significant past medical history. He was in his usual state of health up until about three weeks ago, when he started to note increasing significant leg edema followed by shortness of breath, dyspnea on exertion, abdominal pain and highly foamy "soap-sudsy" appearance to his urine. He notes that his baseline weight is 175 and his weight went up to greater than 200 pounds. Patient was very concerned and spoke with his physician telecom assistant (PA) at [facility] and went to the emergency room at [facility] on May 02, 2020, where laboratory studies indicated gerardo new onset nephrotic syndrome with all the classic hallmarks, including dyslipidemia, hypothyroidism and his serum albumin at the time was 1.1. The patient underwent a CAT scan of the chest, abdomen and pelvis. Only the CT of the chest had intravenous (IV) contrast and was negative for pericardial or pleural effusion or pulmonary embolus. His CT abdomen and pelvis showed gross ascites and splenomegaly. The patient was referred for urgent nephrology evaluation. I saw him in the office on Monday, May 04, 2020. The patient had ongoing complaint of abdominal pain, which was unrelenting. I discussed with interventional radiology for urgent kidney biopsy and was told there would be about a one week delay unless the patient was admitted to the hospital for inpatient procedure. His biopsy could be done as early as Thursday, May 07, 2020. In view of is splenomegaly, ascites and abdominal pain, I did want to rule out any sort of intraabdominal thrombosis and patient was referred to the emergency room for CT of his abdomen and pelvis with IV contrast and to start pulse dose steroids in view of nephrotic syndrome, and anticoagulation as well in view of hypercoagulable state and plan for kidney biopsy on Thursday, May 07, 2020. PAST MEDICAL HISTORY: Childhood asthma. PAST SURGICAL HISTORY: Bilateral ear tube placement. FAMILY HISTORY: He denies any family history of kidney disease or autoimmune disease. SOCIAL HISTORY: He is active duty . He denies smoking, alcohol or drugs. HOME MEDICATIONS: He takes no home medications. ALLERGIES: No known drug allergies. REVIEW OF SYSTEMS: CONSTITUTIONAL: He reports weight gain of about 30 pounds in the past three weeks. He denies any fevers or chills. EYES: He denies visual blurring or tearing. EARS, NOSE AND THROAT: He denies odynophagia or rhinorrhea. CARDIAC: He denies chest pain or palpitations. He reports dyspnea with exertion. RESPIRATORY: He reports dyspnea with exertion. He denies cough or hemoptysis. GASTROINTESTINAL: He reports diffuse abdominal pain. He denies nausea, vomiting or diarrhea. GENITOURINARY: He reports very foamy urine. He denies hematuria. ENDOCRINE: He denies any history of thyroid problems nor diabetes. He does have new onset hypothyroidism related to his nephrotic syndrome. HEMATOLOGIC: He denies any history of easy bleeding or bruising. MUSCULOSKELETAL: He reports leg swelling. He denies myalgias or arthralgias. NEUROLOGIC: He denies seizures or syncope. PSYCHIATRIC: He denies anxiety or depression. The remainder of the review of systems is negative or as per history of present illness (HPI) PHYSICAL EXAMINATION: Temperature 97.5, pulse 78, respiratory rate 16, blood pressure 128/60, saturating 91-100% on room air. INTAKE AND OUTPUT: Not yet recorded. Weight in the bed scale today is 90.4 kg. GENERAL: Patient is seen awake, alert and in no acute distress. Extraocular muscles are intact. There is some mild periorbital puffiness. Nose and throat are unremarkable. Jugular veins are not elevated. HEART SOUNDS: Regular S1, S2. There is 2+ leg edema and 1+ arm edema as well. RESPIRATORY: Symmetric breath sounds. No crackle or rale. ABDOMEN: Soft and mildly tender to palpation. There are bowel sounds. EXTREMITIES: He has anasarcic appearance. NEUROLOGIC: He is oriented times three, interactive, at baseline mentation. SKIN: Warm and dry. There is no pallor. LABORATORY STUDIES: Sodium 137, potassium 5.0, bicarbonate 26, BUN 18, creatinine 1.0, corrected calcium is within normal limits. Albumin 0. 8. LDL 250, total cholesterol 395. TSH 7.6, Free T4 is only 0.6. Hemoglobin 18.6, platelets 275. Urinalysis shows 3+ protein and no RBCs. IMAGING DATA: CT of the abdomen and pelvis shows small bilateral pleural effusions, diffuse body wall edema consistent with anasarca, moderate volume ascites. INPATIENT MEDICATIONS: The patient is ordered for: - pulse steroids, Solu-Medrol 1 gram IV daily times three days - heparin drip - Protonix 40 mg IV daily - atorvastatin 20 mg by mouth daily - magnesium 400 mg by mouth daily PROBLEMS: 1. New onset nephrotic syndrome in this young 24-year-old male. Patient has had severe nephrotic syndrome which likely has evolved over the past three weeks, based on his description of symptom onset. He is severely hypoalbuminemic with serum albumin of only 0.8 and urinalysis shows 3+ protein and negative for RBCs. He is arranged for urgent kidney biopsy on Thursday, May 07, 2020. He is started on statin therapy; however, I will hold off on angiotensin converting enzyme (CAROLE)/angiotensin receptor nanette (ARB) in view of contrast exposure. For the same reason, we will also not diurese him as of yet because he recently had recurrent contrast studies. 2. Anasarca, ascites, pleural effusion. Patient is in gross fluid overload related to his new onset nephrotic syndrome. As per patient, he has gained about 30 pounds weight in the past three weeks. He will need to be diuresed; however, I will not start at present in view of risk of kidney injury, given that he recently did have contrast. For his underlying nephrotic syndrome, he is receiving pulse steroids (Solu-Medrol 1 gram daily times three days) and further management will be based upon results of kidney biopsy. 3. Dyslipidemia, secondary to nephrotic syndrome. Continue statin therapy. 4. Hypothyroidism. It is due to nephrotic syndrome and loss of thyroid-binding globulin due to nephrotic range proteinuria. I would hold off on starting thyroid replacement hormone as of yet. 5. Hypercoagulable state. Patient is at high risk of thrombotic event due to nephrotic syndrome. He is being anticoagulated with heparin drip, which will be discontinued prior to his kidney biopsy on Thursday. Ultimately, I plan to discharge him on Eliquis. Thank you for involving me in the care of Mr. Werner. I will follow up along with you.
[2020-05-05] MEDS: ONDANSETRON 4 MG ORAL DISINTEGRATING TAB PO PRN (16:27)
[2020-05-05] MEDS ORDERED: methylPREDNISolone 1,000 MG, VIAL MATE ADAPTER 1 EACH in D5W 250 ML IV ONE (20:00)
[2020-05-05] MEDS: PANTOPRAZOLE 40MG VIAL (C9113 PER 1) IV SCH (20:48)
[2020-05-05 22:00] VITALS: BP 133/72
[2020-05-05] MEDS ORDERED: RAMELTEON 8 MG TAB (ROZEREM) PO ONE (23:45)
[2020-05-06] MEDS: ONDANSETRON 4 MG ORAL DISINTEGRATING TAB PO PRN ×3 (04:17→18:24)
[2020-05-06 06:00] VITALS: BP 127/61
[2020-05-06 07:27] LABS: HEMATOCRIT 51.2 % (42.0-52.0); HEMOGLOBIN 18.4 g/dl (13.5-17.5); MEAN CORPUSCULAR HEMOGLOBIN 32.6 pg (27.0-33.0); MEAN CORPUSCULAR HGB CONC 35.9 g/dl (32.0-36.5); MEAN CORPUSCULAR VOLUME 90.8 fl (80.0-96.0); PLATELET COUNT, AUTOMATED 307 10^3/uL (150-450); RED BLOOD COUNT 5.64 10^6/uL (4.30-6.10); WHITE BLOOD COUNT 17.6 10^3/uL (4.0-10.0)
[2020-05-06 07:48] LABS: BLOOD UREA NITROGEN 32 MG/DL (7-18); CALCIUM LEVEL 6.8 MG/DL (8.5-10.1); CARBON DIOXIDE LEVEL 28 MEQ/L (21-32); CHLORIDE LEVEL 102 MEQ/L (98-107); CREATININE FOR GFR 0.91 MG/DL (0.70-1.30); GLOMERULAR FILTRATION RATE > 60.0 (>60); GLUCOSE, FASTING 96 MG/DL (70-100); SODIUM LEVEL 136 MEQ/L (136-145)
[2020-05-06] MEDS: ATORVASTATIN 20 MG TAB PO SCH (08:59)
[2020-05-06] MEDS: MAGNESIUM OXIDE 400MG TAB (MAG-OX) PO SCH (09:00)
[2020-05-06] MEDS ORDERED: traMADol 50 MG TAB PO PRN (10:00)
[2020-05-06] MEDS: CALCIUM/VITAMIN D 500 MG TAB PO SCH ×2 (10:16→20:03)
[2020-05-06] MEDS: FUROSEMIDE 20MG/2ML VIAL (J1940) IV SCH ×2 (10:17→17:52)
--- NOTE | 2020-05-06 10:30 | IPN ---
PROGRESS NOTE DATE: 05/06/2020 SUBJECTIVE: Fabián is seen and examined this morning at the bedside. He complains of diffuse abdominal pain /. He also complains of nausea. His daily weights have risen and he is grossly anasarcic with known ascites. He continues on a heparin drip and the plan is for kidney biopsy tomorrow. OBJECTIVE: VITAL SIGNS: Temperature 97.7, pulse 80, respiratory rate 16, blood pressure 127/61, saturating 95% on room air. INTAKE AND OUTPUT: Intake yesterday was 3.9 liters. Weight on the bed scale today is 92.9 kg. GENERAL: The patient is seen awake, alert, oriented, in mild distress. HEENT: Extraocular muscles are intact. Tongue is moist. NECK: Supple. HEART: Regular. S1, S2. LUNGS: Clear to auscultation bilaterally. No crackle, rale, or rhonchus. ABDOMEN: Bowel sounds in all four quadrants. Soft. No rebound tenderness nor guarding. He has mild tenderness to palpation diffusely. EXTREMITIES: Consistent with a generalized anasarcic appearance. SKIN: Warm and dry. No pallor. NEUROLOGIC: He is oriented x3 at baseline mentation. PSYCHIATRIC: Appropriate mood and affect. LABORATORY DATA: PTT 99. Hemoglobin 18.4, white count 17.6, platelets 307,000. Sodium 136, potassium 5.0, creatinine 0.9, BUN 32, corrected calcium is within normal limits, ionized calcium is pending. A 24-hour urine collection is in process. Serologies show normal C3, normal C4, negative hepatitis B surface antigen, negative hepatitis C antibody, negative HIV. INPATIENT MEDICATIONS: I added Lasix 20 mg IV b.i.d., calcium 500 mg p.o. b.i.d., Solu-Medrol 1 gram IV this evening, and tramadol 50 mg p.o. q. 12 hourly p.r.n. pain. Primary service added Phenergan p.r.n. PROBLEMS: 1. Nephrotic syndrome. A 24-hour urine collection is in progress for protein quantification. His serum albumin is extremely low at 0.8. He is in generalized anasarca with small bilateral pleural effusions along with moderate ascites. He was previously not on a fluid restriction due to recent contrast exposure, but I am adding the fluid restriction today and will also start some gentle diuretic with Lasix 20 mg IV b.i.d. as he is having more tenderness from his abdominal ascites. Continue statin therapy. Plan is for kidney biopsy with interventional radiology tomorrow. He will be transitioned to prednisone tomorrow as well. 2. Generalized anasarca/fluid overload. It is due to nephrotic syndrome. Diuretic and fluid restriction was not previously instituted because of his IV contrast studies. However, now I am going to go ahead and start Lasix 20 mg IV b.i.d. and put him on a 2 liter fluid restriction. In terms of his underlying nephrotic syndrome, today is the third day of pulse steroids and tomorrow, we will switch to oral prednisone and further management will be dependent on kidney biopsy histopathology. 3. Abdominal pain. It is most likely secondary to his moderate ascites. We will start diuresing and tramadol p.r.n. is ordered as well. 4. Hypocalcemia. His corrected calcium for Albuterol is within normal limits; however, ionized calcium is ordered as well, and I am going to start oral calcium supplementation. 5. Hypercoagulable state. The patient is presently on heparin drip and I will discontinue it overnight for a plan of kidney biopsy tomorrow and we will transition him to Eliquis as an outpatient.
[2020-05-06] MEDS: HEPARIN DRIP 25,000 UNITS in IV 1 EA IV SCH (13:14)
--- NOTE | 2020-05-06 13:16 | IPNPDOC ---
Date Seen The patient was seen on 05/06/20. Progress Note SUBJECTIVE: +3.3 L/24H, increased swelling. Mild abd discomfort persists. Nephrology starting on lasix BID, [address] in [address]. Nausea persists, added phenergan in addition to zofran. Denies shortness of breath, chest pain, fevers, chills. OBJECTIVE: PHYSICAL EXAMINATION: VS: Please see below CONSTITUTIONAL: No acute distress, resting comfortably, AAO x 3 EYES: PERRLA, EOM intact HENT, MOUTH: Normocephalic, atraumatic, moist mucous membranes NECK: SUPPLE, no JVD, no lymphadenopathy, no carotid bruit CV: Regular rate and rhythm, S1S2 normal, no murmurs/rubs/gallops RESPIRATORY: Clear to auscultation bilaterally, no rales/rhonchi/wheezes GI: mild abd discomfort on diffuse palpation, BS positive in 4 quadrants, soft, nondistended, no rebound or guarding, no organomegaly : Deferred MUSCULOSKELETAL: +2 pitting edema in the b/l lower ext, nonpitting upper ext edema b/l. Normal ROM. No cyanosis, clubbing, joint deformity, INTEGUMENTARY: Intact, no rashes, no lesions, no erythema NEUROLOGIC: Cranial Nerves II-XII are intact, no focal deficits PSYCHIATRIC: Mood and affect are normal CURRENT MEDICATIONS: Please see below LABORATORY DATA: Please see below IMAGING: CT abd/pelvis: 1. Bilateral small pleural effusions are present at the lung bases. 2. The heart size is normal. No evidence of CHF. 3. Diffuse body wall edema is seen in the abdomen and pelvis and proximal thighs consistent with underlying anasarca. 4. A moderate volume ascites is present. 5. Both kidneys appear normal. No hydronephrosis. 6. The urinary bladder is filled with urine. ASSESSMENT: 24 y/o M admitted for further treatment of nephrotic syndrome. PLAN: Nephrotic syndrome -+3.3 L/24 H -Started on lasix BID, fluid restriction -C/w pulse dose steroids, low salt diet -Heparin gtt due to hypercoagulable state with loss of proteins -Renal biopsy planned by nephrology to be done by IR 05/07/20 -Nephrology following closely Bilateral pleural effusion likely 2/2 to fluid overload 2/2 to nephrotic syndrome -Saturating well on RA -C/w treatment above Abdominal pain/nausea likely 2/2 to moderate ascites -C/w lasix above -Tramadol PRN Anasarca 2/2 to nephrotic syndrome -CT abd/pelvis: above -C/w treatment above Hypocalcemia -Corrected Calcium is corrected -Calcium supplement HLD -Lipid panel abnormal -Continue Lipitor Hypothyroidism likely 2/2 to nephrotic syndrome -TSH mildly elevated -Monitor DVT px: -Heparin gtt DISPOSITION: Nephrology following closely. Plan is discharge home when medically improved. VS, I&O, 24H, Fishbone Vital Signs/I&O Vital Signs Date Time Temp Pulse Resp B/P (MAP) Pulse Ox O2 Delivery O2 Flow Rate FiO2 05/06/20 06:00 97.7 80 16 127/61 (83) 95 Room Air I&O- Last 24 Hours up to 6 AM 05/06/20 06:00 Intake Total 4258 ml Output Total 1000 ml Balance 3258 ml Laboratory Data 24H LABS Laboratory Tests 2 05/05/20 19:01: Activated Partial Thromboplast Time 79.3H 05/06/20 01:18: Activated Partial Thromboplast Time 99.8H 05/06/20 06:31: Nucleated Red Blood Cells % (auto) 0.0, Anion Gap 6L, Glomerular Filtration Rate > 60.0, Calcium Level 6.8L 05/06/20 11:43: Whole Blood Ionized Calcium 4.2L CBC/BMP Laboratory Tests 05/06/20 06:31 Microbiology Microbiology 05/06/20 Stool Occult Blood (CHARO) - Final, Complete Current Medications Current Medications Medications (Trade) Dose Ordered Sig/Coby Route PRN Reason Start Time Stop Time Status Last Admin Dose Admin Atorvastatin Calcium (Lipitor) 20 mg DAILY PO 05/05/20 09:00 05/06/20 08:59 Calcium/Vitamin D (Oscal D) 500 mg BID PO 05/06/20 09:00 05/06/20 10:16 Furosemide (LASIX injection) 20 mg BID@ IV 05/06/20 10:00 05/06/20 10:17 Furosemide (Lasix) 40 mg DAILY PO 05/05/20 09:00 05/05/20 02:19 DC Heparin Sodium (Porcine) (Heparin) ASDIRECTED PRN IV SEE LABEL COMMENTS 05/04/20 22:15 Heparin Sodium (Porcine) 73784 units/IV Miscellaneous Supplies 250 ml @ 0 mls/hr Q0M IV 05/04/20 22:15 05/05/20 13:03 Home Med (Med Rec Complete!) ASDIRECTED XX 05/04/20 18:30 05/04/20 18:31 DC Magnesium Oxide (Mag-Ox) 400 mg DAILY PO 05/05/20 09:00 05/06/20 09:00 Non-Formulary Medication (Heparin Iv Rate Change Documentation ml/ Hr) ASDIRECTED XX 05/04/20 22:15 05/09/20 22:14 Ondansetron HCl (Zofran Odt) 4 mg Q4HP PRN PO NAUSEA OR VOMITING 05/05/20 16:15 05/06/20 08:59 Pantoprazole Sodium (Protonix) 40 mg DAILY@2100 IV 05/05/20 21:00 05/05/20 20:48 Promethazine HCl (Phenergan) 25 mg QIDP PRN PO NAUSEA OR VOMITING 05/06/20 09:30 Tramadol HCl (Ultram) 50 mg Q12HP PRN PO PAIN 05/06/20 10:00 Allergies Coded Allergies: No Known Allergies (Verified Allergy, Unknown, 05/04/20) Debbi Mancia MD May 06, 2020 13:16
[2020-05-06 14:00] VITALS: BP 128/75
[2020-05-06] MEDS: PROMETHAZINE 25 MG TAB PO PRN (15:06)
[2020-05-06] MEDS ORDERED: methylPREDNISolone 1,000 MG, VIAL MATE ADAPTER 1 EACH in D5W 250 ML IV ONE (20:00)
[2020-05-06] MEDS: PANTOPRAZOLE 40MG VIAL (C9113 PER 1) IV SCH (20:03)
[2020-05-06 22:00] VITALS: BP 127/70
[2020-05-07] VITALS (8 sets, daily range): BP systolic 127–136; BP diastolic 68–73
[2020-05-07 06:24] LABS: HEMATOCRIT 51.8 % (42.0-52.0); HEMOGLOBIN 18.2 g/dl (13.5-17.5); MEAN CORPUSCULAR HEMOGLOBIN 32.4 pg (27.0-33.0); MEAN CORPUSCULAR HGB CONC 35.1 g/dl (32.0-36.5); MEAN CORPUSCULAR VOLUME 92.2 fl (80.0-96.0); PLATELET COUNT, AUTOMATED 257 10^3/uL (150-450); RED BLOOD COUNT 5.62 10^6/uL (4.30-6.10)
[2020-05-07 06:42] LABS: BLOOD UREA NITROGEN 33 MG/DL (7-18); CALCIUM LEVEL 7.4 MG/DL (8.5-10.1); CARBON DIOXIDE LEVEL 32 MEQ/L (21-32); CHLORIDE LEVEL 99 MEQ/L (98-107); CREATININE FOR GFR 1.08 MG/DL (0.70-1.30); GLOMERULAR FILTRATION RATE > 60.0 (>60); GLUCOSE, FASTING 141 MG/DL (70-100); SODIUM LEVEL 136 MEQ/L (136-145)
[2020-05-07] MEDS: MAGNESIUM OXIDE 400MG TAB (MAG-OX) PO SCH (08:09)
[2020-05-07] MEDS: ATORVASTATIN 20 MG TAB PO SCH (08:09)
[2020-05-07] MEDS: predniSONE 20 MG TAB PO SCH (08:09)
[2020-05-07] MEDS: CALCIUM/VITAMIN D 500 MG TAB PO SCH ×2 (08:09→20:55)
[2020-05-07] MEDS ORDERED: LIDOCAINE 1% MDV 20ML VIAL As Ordered ONE (09:33)
[2020-05-07] MEDS ORDERED: fentaNYL 100 MCG/2 ML INJECTION (J3010) As Ordered ONE (09:55)
[2020-05-07] MEDS ORDERED: diphenhydrAMINE 50MG/ML VIAL (J1200) As Ordered ONE (09:55)
[2020-05-07] MEDS ORDERED: MIDAZOLAM INJ 2MG/2ML VIAL (J2250 PER 1MG) As Ordered ONE (09:55)
--- NOTE | 2020-05-07 10:01 | IRMSE ---
[facility] IR Moderate Sedation Eval. Date and Time Date: May 07, 2020 Time: 10:01 ASA Classification ASA Classification: III-Severe systemic dis. Mallampati Score: II NPO: Yes Obstructive Sleep Apnea: No Interval Plan: moderate sedation MJ HIDALGO MD May 07, 2020 10:01
[2020-05-07 10:18] LABS: TOTAL T3 55.8 NG/DL (60.0-181.0)
--- NOTE | 2020-05-07 11:04 | POST-OPPD ---
Postoperative Procedure Note Date Of Procedure: May 07, 2020 Time Of Procedure: 11:[address] Guided kidney biopsy. IR Moderate sedation. Clinical Information:Nephrotic syndrome. Physician: Dr. Weiss. Procedure: The patient was advised of the benefits, risks, and alternatives of the procedure and informed consent was obtained. A time out was performed with verification of the patient's name, MRN, site of procedure, and type of procedure to be performed. The patient was positioned in the prone position on the CT table. The site was prepped and draped in the usual sterile fashion. Moderate sedation was performed by the physician including the presence of an independent trained RN who assisted in monitoring the patient's level of consciousness and physiological status. Following the administration of fentanyl and Versed, the physician spent 45 minutes of continuous [id number] time with the patient. Preliminary CT demonstrates unremarkable left kidney. The skin and expected tract were anesthetized with lidocaine.A 17-gauge coaxial needle was advanced under intermittent CT guidance to the left kidney lower pole cortex. An 18-gauge Biopince device was advanced through the coaxial needle and used to obtain 3 cores through the lower pole of the kidney, with CT confirmation. The needle was removed, pressure held and hemostasis achieved. A follow-up CT through the area demonstrates no significant hematoma. A sterile dressing was applied to the site. The patient tolerated the procedure well and was returned to the PRU in stable condition. EBL:Less than 5 mL. Complications:None. Conclusion:1. CT demonstrates unremarkable left kidney. 2. Successful CT-guided renal biopsy. Patient to follow-up with referring provider for biopsy results. Thank you for this referral. MJ WEISS MD May 07, 2020 11:04
--- NOTE | 2020-05-07 12:48 | IPN ---
NEPHROLOGY PROGRESS NOTE DATE: 05/07/2020 SUBJECTIVE: Mr. Werner is seen this morning on his bedside. He just came back from radiology after having his left kidney biopsy. He is feeling well and denies any significant pain at the biopsy site. He has severe nephrotic syndrome with 24 hour urine protein, almost 13 grams. He has already received pulse steroid therapy for the last three days and today prednisone 60 mg was started by mouth. Patient was also given intravenous (IV) Lasix which was stopped last evening. He denies any dyspnea or chest pain, but has some pedal edema. Patient was on IV heparin drip, which was stopped last night in view of scheduled kidney biopsy today. Plan is to start Eliquis 5 mg twice a day with first dose tomorrow morning. PHYSICAL EXAMINATION: Temperature 98.4 degrees Fahrenheit, heart rate 60 per minute, respiratory rate 16 per minute, blood pressure 135/70 mmHg, oxygen saturation 98% on room air. HEAD: Atraumatic. NECK: Supple without jugular venous distention (JVD) or thyroid enlargement. HEART SOUNDS: Regular. LUNGS: Clear to auscultation. ABDOMEN: Soft and nontender. Nondistended. Bowel sounds present. Left kidney biopsy site is clean and dry without any bleeding or hematoma. EXTREMITIES: No cyanosis or clubbing. There is minimal edema on his feet and ankles. He also has some edema on his forearms. NEUROLOGIC: He is awake, alert and oriented times three. LABORATORY DATA: Today's labs show sodium 136, potassium 5.0, CO2 32, BUN 33, creatinine 1.08, glucose 141, calcium 7.4. Serum albumin was only 0.8. WBC 7.0, hemoglobin 18.2, hematocrit 51.8. 24 hour urine test came back today which showed 1.28 grams of protein in 24 hour urine. PROBLEMS: 1. Nephrotic syndrome. Patient already has received three days of pulse steroid therapy with Solu-Medrol 1000 mg daily for three days. He is now on prednisone 60 mg daily pending his kidney biopsy results. He just had kidney biopsy today. His biopsy results will be followed up as outpatient. Patient was also on an IV heparin drip, which was stopped last night due to scheduled biopsy this morning. He will be started on Eliquis 5 mg twice a day from tomorrow. Patient is being advised to stay on a low sodium diet. 2. Peripheral edema. This is anasarca related to severe nephrotic syndrome. Lasix has been stopped and I have explained to the patient at length about potential risks involved with diuresis. At this point, I would prefer to keep him off diuretics, as he could be hypercoagulable and will increase the risk of thromboembolic complications. 3. Disposition. Patient is likely to be ready for discharge tomorrow morning. 4. Anticoagulation. Heparin drip has been stopped and patient will be started on Eliquis 5 mg twice a day starting tomorrow morning.
--- NOTE | 2020-05-07 17:41 | IPNPDOC ---
Date Seen The patient was seen on 05/07/20. Progress Note SUBJECTIVE: Neg 786 mL/24H. Heparin gtt stopped and Liver bx done today. Lasix stopped. Denies shortness of breath, chest pain, fevers, chills. OBJECTIVE: PHYSICAL EXAMINATION: VS: Please see below CONSTITUTIONAL: No acute distress, resting comfortably, AAO x 3 EYES: PERRLA, EOM intact HENT, MOUTH: Normocephalic, atraumatic, moist mucous membranes NECK: SUPPLE, no JVD, no lymphadenopathy, no carotid bruit CV: Regular rate and rhythm, S1S2 normal, no murmurs/rubs/gallops RESPIRATORY: Clear to auscultation bilaterally, no rales/rhonchi/wheezes GI: mild abd discomfort on diffuse palpation, BS positive in 4 quadrants, soft, nondistended, no rebound or guarding, no organomegaly : Deferred MUSCULOSKELETAL: +2 pitting edema in the b/l lower ext, nonpitting upper ext edema b/l. Normal ROM. No cyanosis, clubbing, joint deformity, INTEGUMENTARY: Intact, no rashes, no lesions, no erythema NEUROLOGIC: Cranial Nerves II-XII are intact, no focal deficits PSYCHIATRIC: Mood and affect are normal CURRENT MEDICATIONS: Please see below LABORATORY DATA: Please see below IMAGING: CT abd/pelvis: 1. Bilateral small pleural effusions are present at the lung bases. 2. The heart size is normal. No evidence of CHF. 3. Diffuse body wall edema is seen in the abdomen and pelvis and proximal thighs consistent with underlying anasarca. 4. A moderate volume ascites is present. 5. Both kidneys appear normal. No hydronephrosis. 6. The urinary bladder is filled with urine. ASSESSMENT: 24 y/o M admitted for further treatment of nephrotic syndrome. PLAN: Nephrotic syndrome -Neg fluid balance, high 24 H urine protein at 13g -Stopped heparin gtt and lasix -Transitioned to PO steroids which he will continue after discharge, low salt diet -Starting on eliquis BID 05/08/20 for hypercoagulable state -Renal biopsy done 05/07/20 and can f/u with it as o/p -Nephrology following closely and recommend likely d/c on 05/08/20 Bilateral pleural effusion likely 2/2 to fluid overload 2/2 to nephrotic syndrome -Saturating well on RA -Lasix stopped as will increase risk of thromboembolic complications per nephro -C/w treatment above Abdominal pain/nausea likely 2/2 to moderate ascites -Slightly improved today s/p diuresis -Tramadol PRN Anasarca 2/2 to nephrotic syndrome -CT abd/pelvis: above -C/w treatment above Hypocalcemia -Corrected Calcium is wnl -Calcium supplement HLD -Lipid panel abnormal -Continue Lipitor Hypothyroidism likely 2/2 to nephrotic syndrome -TSH mildly elevated -Monitor DVT px: -Liver bx today, not currently on AC. Starting eliquis BID 05/08/20 DISPOSITION: Can likely d/c in the AM with f/u with nephrology as o/p. VS, I&O, 24H, Fishbone Vital Signs/I&O Vital Signs Date Time Temp Pulse Resp B/P (MAP) Pulse Ox O2 Delivery O2 Flow Rate FiO2 05/07/20 12:40 97.9 78 16 127/68 (87) 96 Room Air 05/07/20 10:39 2 I&O- Last 24 Hours up to 6 AM 05/07/20 06:00 Intake Total 1168 ml Output Total 1900 ml Balance -732 ml Laboratory Data 24H LABS Laboratory Tests 2 05/07/20 05:42: Nucleated Red Blood Cells % (auto) 0.0, Anion Gap 5L, Glomerular Filtration Rate > 60.0, Calcium Level 7.4L, Whole Blood Ionized Calcium 4.2L CBC/BMP Laboratory Tests 05/07/20 05:42 Microbiology Microbiology 05/06/20 Stool Occult Blood (CHARO) - Final, Complete Current Medications Current Medications Medications (Trade) Dose Ordered Sig/Coby Route PRN Reason Start Time Stop Time Status Last Admin Dose Admin Apixaban (Eliquis) 5 mg BID PO 05/08/20 09:00 Atorvastatin Calcium (Lipitor) 20 mg DAILY PO 05/05/20 09:00 05/07/20 08:09 Calcium/Vitamin D (Oscal D) 500 mg BID PO 05/06/20 09:00 05/07/20 08:09 Furosemide (LASIX injection) 20 mg BID@09,17 IV 05/06/20 10:00 05/06/20 18:29 DC 05/06/20 17:52 Furosemide (Lasix) 40 mg DAILY PO 05/05/20 09:00 05/05/20 02:19 DC Heparin Sodium (Porcine) (Heparin) ASDIRECTED PRN IV SEE LABEL COMMENTS 05/04/20 22:15 05/06/20 18:29 DC Heparin Sodium (Porcine) 90056 units/IV Miscellaneous Supplies 250 ml @ 0 mls/hr Q0M IV 05/04/20 22:15 05/06/20 18:29 DC 05/06/20 13:14 Home Med (Med Rec Complete!) ASDIRECTED XX 05/04/20 18:30 05/04/20 18:31 DC Magnesium Oxide (Mag-Ox) 400 mg DAILY PO 05/05/20 09:00 05/07/20 08:09 Non-Formulary Medication (Heparin Iv Rate Change Documentation ml/ Hr) ASDIRECTED XX 05/04/20 22:15 05/06/20 18:29 DC Ondansetron HCl (Zofran Odt) 4 mg Q4HP PRN PO NAUSEA OR VOMITING 05/05/20 16:15 05/06/20 18:24 Pantoprazole Sodium (Protonix) 40 mg DAILY@2100 IV 05/05/20 21:00 05/06/20 20:03 Prednisone (Deltasone) 60 mg QAM PO 05/07/20 09:00 05/07/20 08:09 Promethazine HCl (Phenergan) 25 mg QIDP PRN PO NAUSEA OR VOMITING 05/06/20 09:30 05/06/20 15:06 Tramadol HCl (Ultram) 50 mg Q12HP PRN PO PAIN 05/06/20 10:00 Allergies Coded Allergies: No Known Allergies (Verified Allergy, Unknown, 05/04/20) Debbi Mancia MD May 07, 2020 17:41
[2020-05-07] MEDS: PANTOPRAZOLE 40MG VIAL (C9113 PER 1) IV SCH (20:55)
[2020-05-08] MEDS: PROMETHAZINE 25 MG TAB PO PRN (01:25)
[2020-05-08 06:00] VITALS: BP 109/55
[2020-05-08 07:08] LABS: APPEARANCE, URINE HAZY (CLEAR); BACTERIA, URINE AUTO NEGATIVE (NEGATIVE); BILIRUBIN, URINE AUTO NEGATIVE (NEGATIVE); BLOOD, URINE BLOOD 1+ (NEGATIVE); COLOR, URINE YELLOW (YELLOW); GLUCOSE, URINE (UA) AUTO NEGATIVE (NEGATIVE); KETONE, URINE AUTO NEGATIVE (NEGATIVE); LEUKOCYTE ESTERASE, URINE AUTO NEGATIVE (NEGATIVE); NITRITE, URINE AUTO NEGATIVE (NEGATIVE); PROTEIN, URINE AUTO 3+ mg/dL (NEGATIVE); RBC, URINE AUTO 10 /HPF (0-3); SPECIFIC GRAVITY URINE AUTO 1.029 (1.002-1.035); SQUAMOUS EPITHELIAL CELL UR AU 0 /HPF (0-6); UROBILINOGEN, URINE AUTO 0.2 mg/dL (0.0-2.0); WBC, URINE AUTO 3 /HPF (0-3)
[2020-05-08 07:35] LABS: TOTAL PROTEIN,RANDOM URINE 201.9 MG/DL (0.0-12.0)
[2020-05-08 07:46] LABS: HEMATOCRIT 44.8 % (42.0-52.0); MEAN CORPUSCULAR HEMOGLOBIN 32.6 pg (27.0-33.0); MEAN CORPUSCULAR HGB CONC 35.3 g/dl (32.0-36.5); MEAN CORPUSCULAR VOLUME 92.6 fl (80.0-96.0); PLATELET COUNT, AUTOMATED 217 10^3/uL (150-450); RED BLOOD COUNT 4.84 10^6/uL (4.30-6.10); WHITE BLOOD COUNT 12.6 10^3/uL (4.0-10.0)
[2020-05-08] MEDS ORDERED: CALCD50TA PO (07:51)
[2020-05-08] MEDS ORDERED: ELIQ5TAB PO (07:51)
[2020-05-08] MEDS ORDERED: PRED20TA PO (07:52)
[2020-05-08 08:04] LABS: ALBUMIN 0.9 GM/DL (3.2-5.2); BLOOD UREA NITROGEN 33 MG/DL (7-18); CALCIUM LEVEL 7.3 MG/DL (8.5-10.1); CARBON DIOXIDE LEVEL 32 MEQ/L (21-32); CHLORIDE LEVEL 102 MEQ/L (98-107); CREATININE FOR GFR 0.83 MG/DL (0.70-1.30); GLOMERULAR FILTRATION RATE > 60.0 (>60); GLUCOSE, FASTING 84 MG/DL (70-100); PHOSPHORUS LEVEL 3.1 MG/DL (2.5-4.9); POTASSIUM SERUM 4.6 MEQ/L (3.5-5.1); SODIUM LEVEL 137 MEQ/L (136-145)
[2020-05-08 08:15] LABS: HEMOGLOBIN 15.8 g/dl (13.5-17.5)
[2020-05-08] MEDS: MAGNESIUM OXIDE 400MG TAB (MAG-OX) PO SCH (08:43)
[2020-05-08] MEDS: CALCIUM/VITAMIN D 500 MG TAB PO SCH (08:43)
[2020-05-08] MEDS: predniSONE 20 MG TAB PO SCH (08:43)
[2020-05-08] MEDS: ATORVASTATIN 20 MG TAB PO SCH (08:46)
[2020-05-08] MEDS ORDERED: ONDA4TAB6 PO (08:49)
[2020-05-08] MEDS ORDERED: APIXABAN 5 MG TAB (ELIQUIS) PO SCH (09:00)
--- NOTE | 2020-05-08 10:55 | DS.PDOC ---
Discharge Summary General Date of Admission May 04, 2020 at 22:11 Date of Discharge 05/08/20 Discharge Summary PROCEDURES PERFORMED DURING STAY: renal biopsy -IR Dr. Weiss [employer]IAN: Denitrator, Dr. Tameka Fuentes, Dr. Rosalba Fuentes Interventional radiologist, Dr. Weiss DISCHARGE DIAGNOSES: Nephrotic syndrome Bilateral pleural effusions secondary to anasarca from nephrotic syndrome Abdominal pain secondary to moderate ascites from nephrotic syndrome and anasarca with fluid overload DISCHARGE MEDICATIONS: SEE BELOW Discharge instructions: 2 g sodium diet, 2 L fluid restriction. Immediate follow-up with cryogenics repairer within 5-7 days of hospital discharge History of present illness: Patient is a 24 yo male with PMH of asthma and recurrent ear infections presented to [facility] ER with bilateral lower extremity and abdominal swelling and pain after he was advised by his cryogenics repairer after the office appointment. Patient reported that he has 1 week of bilateral lower extremity and abdominal swelling for a week. He went to his PCP last Thursday, and went to [place] ER last Thursday. He was subsequently set up his first nephrology appointment with Dr. Fuentes on 05/04/2020 for possible nephrotic disease with planned kidney biopsy this coming Thursday per patient; patient reported that he was advised to come to ED due to the swelling and concerns for clots. He reported epigastric and bilateral lower quadrant abdominal pain which is sharp, intermittent, rated 6.5-7/10, alleviated by reclining position, aggravated by laying down; reported the swelling and pain in his b/l LE and abdomen are stable. Denies nausea, vomiting, fever, or chills. Denies chest pain, palpitations, or dyspnea; reported exertional dyspnea while climbing stairs since Thursday which resolves with resting. 20lb weight gain for a week without diet changes. Pt reported he was advised today to start salt restric tion; he is not yet on fluid restriction. Denies calf pain but reported tightness in b/l popliteal fossa since Thursday, rated 7/10, worse with walking, improves with massaging. Hospital course: 24 y/o M admitted for further treatment of nephrotic syndrome. Nephrotic syndrome -Neg fluid balance, high 24 H urine protein at 13g -Stopped heparin gtt and lasix -Transitioned to PO steroids which he will continue after discharge, low salt diet -Starting on eliquis BID 05/08/20 for hypercoagulable state -Renal biopsy done 05/07/20 and can f/u with it as o/p -Nephrology following closely and recommend likely d/c on 05/08/20 Bilateral pleural effusion likely 2/2 to fluid overload 2/2 to nephrotic syndrome -Saturating well on RA -Lasix stopped as will increase risk of thromboembolic complications per nephro -C/w treatment above Abdominal pain/nausea likely 2/2 to moderate ascites -Slightly improved today s/p diuresis -Tramadol PRN Anasarca 2/2 to nephrotic syndrome -CT abd/pelvis: above -C/w treatment above Hypocalcemia -Corrected Calcium is wnl -Calcium supplement HLD -Lipid panel abnormal -Continue Lipitor Hypothyroidism likely 2/2 to nephrotic syndrome -TSH mildly elevated -Monitor DVT px: -Liver bx today, not currently on AC. Starting eliquis BID 05/08/20 DISCHARGE PHYSICAL EXAMINATION: VS: Please see below CONSTITUTIONAL: No respiratory distress or use of respiratory accessory muscles AAO x 3 EYES: PERRLA, EOM intact. No icterus or jaundice HENT, MOUTH: Normocephalic, atraumatic, moist mucous membranes NECK: SUPPLE, no JVD, no lymphadenopathy, no carotid bruit CV: Regular rate and rhythm, S1S2 normal, no murmurs/rubs/gallops RESPIRATORY: Clear to auscultation bilaterally, no rales/rhonchi/wheezes GI: Positive bowel sounds, soft, nontender, nondistended. No CVA tenderness MUSCULOSKELETAL: +2 pitting edema in the b/l lower ext, nonpitting upper ext edema b/l. Normal ROM. No cyanosis, clubbing, joint deformity, CURRENT MEDICATIONS: Please see below LABORATORY DATA: Please see below IMAGING: CT abd/pelvis: 1. Bilateral small pleural effusions are present at the lung bases. 2. The heart size is normal. No evidence of CHF. 3. Diffuse body wall edema is seen in the abdomen and pelvis and proximal thighs consistent with underlying anasarca. 4. A moderate volume ascites is present. 5. Both kidneys appear normal. No hydronephrosis. 6. The urinary bladder is filled with urine. Time spent on discharge 30 minutes Vital Signs/I&Os Vital Signs Date Time Temp Pulse Resp B/P (MAP) Pulse Ox O2 Delivery O2 Flow Rate FiO2 05/08/20 06:00 98.2 58 16 109/55 (73) 93 Room Air 05/07/20 10:39 2 I&O- Last 24 Hours up to 6 AM 05/08/20 06:00 Intake Total 2126 ml Output Total 675 ml Balance 1451 ml Laboratory Data Labs 24H Laboratory Tests 2 05/08/20 06:47: Urine Color YELLOW, Urine Appearance HAZY, Urine pH 6.0, Urine Specific [place] 1.029, Urine Protein 3+H, Urine Glucose (Auto)(UA) NEGATIVE, Urine Ketones (Auto) NEGATIVE, Urine Blood 1+H, Urine Nitrite NEGATIVE, Urine Bilirubin NEGATIVE, Urine Urobilinogen 0.2, Urine Leukocyte Esterase (Auto) NEGATIVE, Urine WBC (Auto) 3, Urine RBC (Auto) 10H, Urine Hyaline Casts (Auto) 0, Urine Bacteria (Auto) NEGATIVE, Urine Squamous Epithelial Cells 0, Urine Sperm (Auto) , Urine Random Total Protein 201.9H 05/08/20 07:00: Nucleated Red Blood Cells % (auto) 0.0, Anion Gap 3L, Glomerular Filtration Rate > 60.0, Calcium Level 7.3L, Phosphorus Level 3.1, Albumin 0.9L CBC/BMP Laboratory Tests 05/08/20 07:00 Microbiology Microbiology 05/06/20 Stool Occult Blood (CHARO) - Final, Complete Discharge Medications Scheduled Apixaban (Eliquis) 5 Mg Tablet, 5 MG PO BID Atorvastatin Calcium (Lipitor) 20 Mg Tablet, 20 MG PO DAILY, (Reported) Calcium/Vitamin D (Calcium 500-Vit D3 200 Tablet) 1 Each Tablet, 500 MG PO BID Magnesium Oxide (Magnesium) 500 Mg Capsule, 500 MG PO DAILY, (Reported) Prednisone (Prednisone) 20 Mg Tablet, 60 MG PO DAILY 3TABS (20 MG) 60 MG DAILY Scheduled PRN Ondansetron (Ondansetron Odt) 4 Mg Tab.rapdis, 4 MG PO Q4HP PRN for NAUSEA OR VOMITING Allergies Coded Allergies: No Known Allergies (Verified Allergy, Unknown, 05/04/20) MAIK IBRAHIM MD May 08, 2020 10:55
== END 2020-05-08 09:37 | disposition home or self-care (01) | DRG 699 ==
LOC: M ED 16:50 → M ED INP 22:11 → M MSPAV 23:38
PROVIDERS: ADMIT Internal Medicine; ATTEND General Practice
PROC: 0TB13ZX Excision of Left Kidney, Percutaneous Approach, Diagnostic (ICD-10-PCS; principal; 2020-05-07 10:00)
DX: N04.9 Nephrotic syndrome with unspecified morphologic changes (principal); D68.59 Other primary thrombophilia; J90 Pleural effusion, not elsewhere classified; R18.8 Other ascites; E78.5 Hyperlipidemia, unspecified; J45.909 Unspecified asthma, uncomplicated; E03.8 Other specified hypothyroidism; E83.51 Hypocalcemia; Z79.899 Other long term (current) drug therapy; Z20.822 Contact with and (suspected) exposure to COVID-19

== ENCOUNTER → 2020-05-04 | Outpatient (REF) | payer OTHER ==
[~2020-05-04] MED LIST: CALCD50TA PO; ELIQ5TAB PO; LASI40TA9 PO; LIPI20TA PO; MAGN1CAP PO; ONDA4TAB6 PO; PRED20TA PO; SM M250T PO
[2020-05-04 18:19] LABS: COMPLEMENT C3 135 MG/DL (90-180); COMPLEMENT C4 26 MG/DL (10-40)
[2020-05-04 18:32] LABS: HEPATITIS B SURFACE ANTIBODY POSITIVE (POSITIVE)
[2020-05-04 18:42] LABS: HEPATITIS B SURFACE ANTIGEN NEGATIVE (NEGATIVE)
[2020-05-04 19:10] LABS: HEPATITIS C VIRUS ABY INDEX 0.1 INDEX (<0.8)
[2020-05-04 19:11] LABS: HEPATITIS B CORE ANTIBODY IGM NEGATIVE (NEGATIVE); HIV 1&2 SCREEN CENTAUR NEGATIVE (NEGATIVE)
[2020-05-08 16:16] LABS: ANCA-ATYPICAL <1:20 titer (Neg:<1:20); ANTI DS-DNA AB Negative (Negative); ANTI-GLOMERULAR BASEMENT MEMB 3 units (0-20); ANTINUCLEAR ANTIBODIES DIRECT Negative (Negative); CYTOPLASMIC NEUTROP AB ANCA-C <1:20 titer (Neg:<1:20); PERINUCLEAR AB ANCA-P <1:20 titer (Neg:<1:20)
== END ==
LOC: M LAB REF 16:39
PROVIDERS: ATTEND Internal Medicine Nephrology
DX: N04.9 Nephrotic syndrome with unspecified morphologic changes (principal); R31.9 Hematuria, unspecified

== ENCOUNTER → 2020-05-29 | Outpatient (REF) | payer OTHER ==
[2020-05-30 19:13] LABS: FREE T4 1.13 NG/DL (0.76-1.46); THYROID STIMULATING HORMONE 0.624 uIU/ML (0.358-3.740)
== END ==
LOC: M LAB REF 17:15
PROVIDERS: ATTEND Internal Medicine Nephrology
DX: N04.0 Nephrotic syndrome with minor glomerular abnormality (principal); E03.9 Hypothyroidism, unspecified

== ENCOUNTER → 2020-10-22 | Outpatient (REF) | payer OTHER | LOC: M LAB REF 12:51 | PROVIDERS: ATTEND Internal Medicine Nephrology | DX: E83.42 Hypomagnesemia (principal) ==